=== PATIENT | male | born 1965 | race Hispanic/Latino ===

== ENCOUNTER 2020-01-23 13:26 | Inpatient (IN) | payer OTHER, SELFPAY ==
[2020-01-23] MEDS ORDERED: SODIUM CHLORIDE 0.9% 1000 ML 1,000 ML IV ONE ×2 (13:41→14:56)
[2020-01-23] MEDS ORDERED: dexAMETHasone 4 MG/ML VIAL IV ONE (13:42)
--- NOTE | 2020-01-23 13:54 | Emergency Department Report ---
ED Shortness of Breath HPI - General Chief Complaint: Dyspnea/Respdistress Stated Complaint: COVID/MAINOR Time Seen by Provider: 01/23/20 13:41 Source: EMS Mode of arrival: Ambulatory Limitations: Language Barrier - History of Present Illness Initial Comments: Patient is 54 years old male brought to the emergency room via EMS from home. Patient brought for evaluation of shortness of breath and difficulty in breathing for the last few days getting worse today. EMS stated that patient tested positive for COVID-19 3 days ago and his primary care physician started him on Zithromax and prednisone. EMS stated that patient initial oxygen saturat ion was 62% on room air improved with a nonrebreather to 76%. Upon arrival to the ER patient is alert oriented slightly tachypneic with an oxygen saturation of 76% on a nonrebreather. Patient immediately started on high flow oxygen with improvement of his oxygen saturation to 96%. MD Complaint: shortness of breath ED Review of Systems ROS: Stated complaint: COVID/MAINOR Other details as noted in HPI Comment: All other systems reviewed and negative Constitutional: denies: chills, fever Respiratory: cough, orthopnea, shortness of breath, SOB with exertion, SOB at rest. denies: wheezing Cardiovascular: palpitations. denies: chest pain Gastrointestinal: denies: abdominal pain, nausea, vomiting Musculoskeletal: denies: back pain ED Past Medical Hx - Past Medical History Previous Medical History?: Yes Additional medical history: covid19 - Surgical History Past Surgical History?: Yes - Social History Smoking Status: Never Smoker Substance Use Type: None ED Physical Exam - General Limitations: Language Barrier General appearance: alert, in distress (Moderate respiratory distress, tachypneic) - Head Head exam: Present: atraumatic, normocephalic, normal inspection - Eye Eye exam: Present: normal appearance, PERRL - ENT ENT exam: Present: normal exam, normal orophraynx, mucous membranes moist - Neck Neck exam: Present: normal inspection, full ROM. Absent: tenderness, meningismus - Respiratory Respiratory exam: Present: respiratory distress. Absent: wheezes, rales, rhonchi, accessory muscle use, decreased breath sounds, prolonged expiratory - Cardiovascular Cardiovascular Exam: Present: tachycardia - GI/Abdominal GI/Abdominal exam: Present: soft, normal bowel sounds. Absent: distended, tenderness, guarding, rebound, rigid, organomegaly, mass, bruit, pulsatile mass, hernia - Extremities Exam Extremities exam: Present: normal inspection, full ROM, normal capillary refill. Absent: pedal edema, calf tenderness - Back Exam Back exam: Present: normal inspection, full ROM. Absent: CVA tenderness (R), CVA tenderness (L) - Neurological Exam Neurological exam: Present: alert, oriented X3, CN II-XII intact - Skin Skin exam: Present: warm, intact, normal color ED Course Vital Signs 01/23/20 01/23/20 13:38 14:40 Temperature 98.1 F Pulse Rate 106 H Respiratory 18 18 Rate Blood Pressure 115/66 Blood Pressure 115/66 [Right] O2 Sat by Pulse 70 L 100 Oximetry ED Medical Decision Making - Lab Data Result diagrams: 01/23/20 13:52 01/23/20 13:52 - EKG Data -: EKG Interpreted by Ny EKG shows normal: sinus rhythm Rate: normal - Radiology Data Radiology results: report reviewed - Medical Decision Making Patient is 54 years old male brought to the emergency room via EMS from home. Patient brought for evaluation of shortness of breath and difficulty in breathing for the last few days getting worse today. EMS stated that patient tested positive for COVID-19 3 days ago and his primary care physician started him on Zithromax and prednisone. EMS stated that patient initial oxygen saturation was 62% on room air improved with a nonrebreather to 76%. Upon arrival to the ER patient is alert oriented slightly tachypneic with an oxygen saturation of 76% on a nonrebreather. Patient immediately started on high flow oxygen with improvement of his oxygen saturation to 96%. Chest x-ray showed bilateral pneumonia. Patient started on Rocephin 1 g IV, Zithromax 500 mg IV and Decadron 8 mg IV. I discussed the patient with Dr. Wade, he agreed to admit the patient to medical service for further management. Critical care attestation.: If time is entered above; I have spent that time in minutes in the direct care of this critically ill patient, excluding procedure time. ED Disposition Clinical Impression: Pneumonia due to COVID-19 virus Disposition: OP ADMIT IP TO THIS HOSP Is pt being admited?: Yes Condition: Stable Instructions: Bacterial Pneumonia (ED)
[2020-01-23 14:33] LABS: Hematocrit 45.3 % (35.5-45.6); Hemoglobin 15.8 gm/dl (11.8-15.2); Mean Corpuscular HGB Conc 35 % (32-34); Mean Corpuscular Volume 91 fl (84-94); Platelet Count 371 K/mm3 (140-440); Red Blood Count 4.96 M/mm3 (3.65-5.03); Red Cell Distribution Width 13.2 % (13.2-15.2)
[2020-01-23 14:41] LABS: INR 1.15 (0.87-1.13)
[2020-01-23 14:42] LABS: Partial Thromboplastin Time 23.7 Sec. (24.2-36.6)
[2020-01-23] MEDS ORDERED: cefTRIAXone/NS 1 GM/50 ML 1 GM/50 ML BAG IV ONE (14:55)
--- NOTE | 2020-01-23 15:09 | XRay Report ---
CHEST 1 VIEW INDICATION / CLINICAL INFORMATION: Dyspnea. FINDINGS: SUPPORT DEVICES: None. HEART / MEDIASTINUM: No significant abnormality. LUNGS / PLEURA: Severe bilateral airspace pneumonia, lower lobe predominant. Signer Name: Aryan Pina MD Signed: 01/23/2020 3:04 PM Workstation Name: [id number]
[2020-01-23 15:13] LABS: Blood Urea Nitrogen 23 mg/dL (9-20); Calcium 9.1 mg/dL (8.4-10.2); Hemolysis Index 5
[2020-01-23 15:15] LABS: BUN/Creatinine Ratio 38
[2020-01-23 15:17] LABS: Albumin 3.2 g/dL (3.9-5); Bilirubin,Direct 0.2 mg/dL (0-0.2)
[2020-01-23] MEDS ORDERED: AZITHROMYCIN 500 MG in SODIUM CHLORIDE 0.9% 250ML 250 ML IV ONE (15:30)
--- NOTE | 2020-01-23 16:18 | History and Physical Report ---
History of Present Illness Chief complaint: Its hard to breathe History of present illness: 54 YO Male with NO PMH found to have Positive coronavirus test 3 days ago presents to ED for evaluation. Patient states he has experienced shortness of breath over the past 1 week with progressively worsening symptoms over the last 3 days. Patient was seen and evaluated by his primary care physician and found to have a positive coronavirus test 3 days ago and was treated with outpatient antibiotic and steroid therapy. Patient states that he has experienced worsening symptoms. Patient knowledges shortness of breath, fever, malaise, decreased exercise tolerance, dry cough, loss of sense of smell and taste. EMS notified and upon arrival the patient was found to be in distress. Patient was found to have a pulse oximetry of 62% on room air. Patient placed on nonrebreather mask with improvement of pulse oximetry up to 76%. The patient was subsequently transported to [facility] for further care and evaluation of the afo rementioned symptoms. Patient seen and evaluated in the emergency department. All lab and imaging studies reviewed. Patient found to have a follow-up pulse oximetry of 60% on nonrebreather mask and was subsequently placed on high flow submental oxygen with mild improvement in symptoms. Patient underwent chest x- ray which revealed bilateral pneumonia. Patient admitted to medical floor due to increased risk of pulmonary decompensation. Patient initiated on pneumonia protocol. Patient also initiated on coronavirus protocol. Patient denies chills, chest pain, palpitations, skin rash, recent ill contacts. No prior admission for review. No medication listed at time of admission for recon ciliation. Past History Past Medical History: No medical history Past Surgical History: No surgical history, Other (Reviewed) Social history: single. denies: smoking, alcohol abuse, prescription drug abuse Family history: no significant family history Medications and Allergies Allergies Allergy/AdvReac Type Severity Reaction Status Date / Time No Known Allergies Allergy Unverified 01/23/20 16:20 Active Meds: Active Medications Azithromycin 500 mg/ Sodium (Chloride) 250 mls @ 250 mls/hr IV ONCE ONE; Protocol Stop: 01/23/20 16:29 Review of Systems Constitutional: fever, fatigue, weakness, malaise, no chills, no night sweats Ears, nose, mouth and throat: other (Loss of sense of smell and taste), no ear pain, no ear discharge, no tinnitis, no decreased hearing, no nose pain Cardiovascular: no chest pain, no orthopnea, no palpitations, no rapid/irregular heart beat Respiratory: cough, no cough with sputum, no excessive sputum, no hemoptysis Gastrointestinal: no abdominal pain, no nausea, no vomiting, no diarrhea, no constipation Genitourinary Male: no flank pain, no discharge, no urinary frequency, no urinary hesitancy Rectal: no pain, no incontinence, no bleeding Musculoskeletal: no neck stiffness, no neck pain, no shooting arm pain, no arm numbness/tingling Integumentary: no rash, no pruritis, no redness, no sores, no wounds Neurological: no transient paralysis, no paralysis, no weakness, no parathesias, no numbness Psychiatric: no anxiety, no memory loss, no change in sleep habits, no sleep disturbances, no insomnia, no hypersomnia, no change in appetite Endocrine: no cold intolerance, no heat intolerance, no excessive thirst, no polydipsia, no polyuria, no excessive sweating Hematologic/Lymphatic: no easy bruising, no easy bleeding, no lymphadenopathy Allergic/Immunologic: no allergic rhinitis, no wheezing, no persistent infections Exam - Constitutional Vitals: Temp Pulse Resp BP Pulse Ox 98.7 F 107 H 18 115/66 100 01/23/20 13:38 01/23/20 13:38 01/23/20 14:40 01/23/20 13:38 01/23/20 14:40 General appearance: Present: mild distress - EENT Eyes: Present: PERRL ENT: hearing intact, clear oral mucosa - Neck Neck: Present: supple, normal ROM - Respiratory Respiratory effort: labored Respiratory: bilateral: diminished, rhonchi - Cardiovascular Heart Sounds: Present: S1 & S2. Absent: rub, click - Extremities Extremities: pulses symmetrical, No edema Peripheral Pulses: within normal limits - Abdominal General gastrointestinal: Present: soft, non-tender, non-distended, normal bowel sounds Male genitourinary: Present: normal - Integumentary Integumentary: Present: clear, warm, dry - Musculoskeletal Musculoskeletal: gait normal, strength equal bilaterally - Psychiatric Psychiatric: appropriate mood/affect, intact judgment & insight - Neurologic Neurologic: CNII-XII intact, moves all extremities Results - Labs CBC & Chem 7: 01/23/20 13:52 01/23/20 13:52 Labs: Abnormal lab results 01/23/20 01/23/20 01/23/20 Range/Units 13:52 13:52 13:52 WBC 14.5 H (4.5-11.0) K/mm3 Hgb 15.8 H (11.8-15.2) gm/dl MCHC 35 H (32-34) % INR 1.15 H (0.87-1.13) APTT 23.7 L (24.2-36.6) Sec. D-Dimer > 86467 H (0-234) ng/mlDDU Sodium 131 L (137-145) mmol/L Chloride 92.3 L (98-107) mmol/L Carbon Dioxide 21 L (22-30) mmol/L BUN 23 H (9-20) mg/dL Creatinine 0.6 L (0.8-1.3) mg/dL Glucose 394 H (75-100) mg/dL Lactic Acid (0.7-2.0) mmol/L Alkaline Phosphatase (35-129) units/L Albumin (3.9-5) g/dL 01/23/20 01/23/20 Range/Units 13:52 13:52 WBC (4.5-11.0) K/mm3 Hgb (11.8-15.2) gm/dl MCHC (32-34) % INR (0.87-1.13) APTT (24.2-36.6) Sec. D-Dimer (0-234) ng/mlDDU Sodium (137-145) mmol/L Chloride (98-107) mmol/L Carbon Dioxide (22-30) mmol/L BUN (9-20) mg/dL Creatinine (0.8-1.3) mg/dL Glucose 393 H (75-100) mg/dL Lactic Acid 3.50 H* (0.7-2.0) mmol/L Alkaline Phosphatase 216 H (35-129) units/L Albumin 3.2 L (3.9-5) g/dL Assessment and Plan - Patient Problems (1) Acute hypoxemic respiratory failure Current Visit: Yes Status: Acute Plan to address problem: Supplemental high flow oxygen, pulse oximetry, nebulizer therapy via MDI spacer, chest x-ray, prone positioning while in bed, incentive spirometry, pulmonary toilet. (2) Suspected 2019 novel coronavirus infection Current Visit: Yes Status: Acute Plan to address problem: Coronavirus protocol: Coronavirus PCR pending, contact precautions, isolation precautions, IV antibiotic therapy, IV steroid therapy, prone positioning while in bed, incentive spirometry, pulmonary toilet, prophylactic anticoagulation. (3) Bilateral pneumonia Current Visit: Yes Status: Acute Plan to address problem: Pneumonia protocol: Chest x-ray, CBC, CMP, IV antibiotic therapy, pulse oximetry, nebulizer therapy, blood culture, supportive care. (4) DVT prophylaxis Current Visit: Yes Status: Acute Plan to address problem: SCD to bilateral lower extremities while in bed, prophylactic anticoagulation
[2020-01-23 16:21] LABS: C-Reactive Protein 9.5 mg/dL (0.00-1.30)
[2020-01-23] MEDS ORDERED: methylPREDNISolone Sod Succinate 125 MG/2 ML INJ ONE (17:53)
[2020-01-23] MEDS: methylPREDNISolone Sod Succinate 40 MG/1 ML INJ IV SCH ×2 (18:12→22:41)
[2020-01-23 20:19] LABS: Band Neutrophils # (Manual) 0.3 K/mm3; Basophils % (Manual) 0 % (0.0-1.8); Eosinophils % (Manual) 0 % (0.0-4.3); Large Platelets Rare; Total Cells Counted 100
[2020-01-23 20:20] LABS: Platelet Estimate Consistent w Auto
[2020-01-23 22:00] LABS: ABG Base Excess -4.5 mmol/L (-2.0-3.0); ABG HCO3 18.1 mmol/L (20.0-26.0); ABG Methemoglobin 0.5 % (0.0-1.5); ABG Oxygen Saturation 94.9 % (95.0-99.0); ABG PCO2 27.5 mm Hg; ABG PH 7.437 pH Units (7.350-7.450); ABG PO2 63.2 mm Hg (80.0-90.0)
[2020-01-23] MEDS: HEPARIN 5,000 UNIT/1 ML VIAL SUB-Q SCH (22:41)
[2020-01-24] MEDS: methylPREDNISolone Sod Succinate 40 MG/1 ML INJ IV SCH ×3 (06:44→21:18)
[2020-01-24] MEDS: HEPARIN 5,000 UNIT/1 ML VIAL SUB-Q SCH ×2 (13:42→21:19)
[2020-01-24] MEDS: cefTRIAXone/NS 2 GM/100 ML 2 GM/100 ML BAG IV SCH (14:52)
--- NOTE | 2020-01-24 16:17 | Progress Note ---
Assessment and Plan (1) Acute hypoxemic respiratory failure Current Visit: Yes Status: Acute Plan to address problem: Patient on high flow oxygen (2) Suspected 2019 novel coronavirus infection Current Visit: Yes Status: Acute Plan to address problem: Coronavirus PCR positive IV Decadron 6 mg every 24 (3) Bilateral pneumonia Current Visit: Yes Status: Acute Plan to address problem: Continue IV antibiotics (4) DVT prophylaxis Current Visit: Yes Status: Acute Plan to address problem: SCD to bilateral lower extremities while in bed, prophylactic anticoagulation Subjective Date of service: 01/24/20 Principal diagnosis: Acute respiratory failure with hypoxia, COVID-19 positive test (U07.1, [place] Interval history: 54 YO Male with NO PMH found to have Positive coronavirus test 3 days ago presents to ED for evaluation. Patient states he has experienced shortness of breath over the past 1 week with progressively worsening symptoms over the last 3 days. Patient was seen and evaluated by his primary care physician and found to have a positive coronavirus test 3 days ago and was treated with outpatient antibiotic and steroid therapy. Patient states that he has experienced worsening symptoms. Patient knowledges shortness of breath, fever, malaise, decreased exercise tolerance, dry cough, loss of sense of smell and taste. EMS notified and upon arrival the patient was found to be in distress. Patient was found to have a pulse oximetry of 62% on room air. Patient placed on no nrebreather mask with improvement of pulse oximetry up to 76%. The patient was subsequently transported to [facility] for further care and evaluation of the aforementioned symptoms. Patient seen and evaluated in the emergency department. All lab and imaging studies reviewed. Patient found to have a fol low-up pulse oximetry of 60% on nonrebreather mask and was subsequently placed on high flow submental oxygen with mild improvement in symptoms. Patient underwent chest x-ray which revealed bilateral pneumonia. Patient admitted to medical floor due to increased risk of pulmonary decompensation. Patient initiated on pneumonia protocol. Patient also initiated on coronavirus protocol. Patient denies chills, chest pain, palpitations, skin rash, recent ill contacts. No prior admission for review. No medication listed at time of admission for reconciliation. Day #2 01/24/2020 Patient tested positive for coronavirus PCR Patient on high flow oxygen Continue IV Decadron ID consult to be requested Objective - Constitutional Vitals: Vital Signs - 12hr 01/24/20 01/24/20 01/24/20 05:00 06:00 07:00 Temperature Pulse Rate 83 85 84 Respiratory 37 H 40 H 37 H Rate Blood Pressure 116/78 119/81 116/79 O2 Sat by Pulse 89 89 91 Oximetry 01/24/20 01/24/20 01/24/20 07:40 08:00 09:00 Temperature Pulse Rate 81 76 Respiratory 35 H 38 H Rate Blood Pressure 126/82 120/85 O2 Sat by Pulse 89 98 92 Oximetry 01/24/20 01/24/20 01/24/20 10:00 11:00 12:00 Temperature Pulse Rate 74 72 77 Respiratory 36 H 37 H 37 H Rate Blood Pressure 123/76 113/80 115/75 O2 Sat by Pulse 89 91 93 Oximetry 01/24/20 01/24/20 01/24/20 13:54 13:55 15:43 Temperature 98.0 F Pulse Rate 69 Respiratory 28 H 17 Rate Blood Pressure 122/79 O2 Sat by Pulse 89 88 91 Oximetry General appearance: Present: mild distress, well-nourished - EENT Eyes: PERRL, EOM intact ENT: hearing intact, clear oral mucosa Ears: bilateral: normal - Neck Neck: supple, normal ROM - Respiratory Respiratory effort: normal Respiratory: bilateral: CTA, wheezing (Scattered rhonchi) - Breasts Breasts: normal - Cardiovascular Heart rate: 78 Rhythm: regular Heart Sounds: Present: S1 & S2. Absent: gallop, rub Extremities: no ischemia, pulses intact, No edema, normal color, Full ROM - Gastrointestinal General gastrointestinal: Present: soft, non-tender, non-distended, normal bowel sounds - Genitourinary Male genitourinary: normal - Integumentary Integumentary: clear, warm, dry - Musculoskeletal Musculoskeletal: 1, strength equal bilaterally - Neurologic Neurologic: moves all extremities - Psychiatric Psychiatric: memory intact, appropriate mood/affect, intact judgment & insight - Allied health notes Allied health notes reviewed: nursing, case management - Labs CBC & Chem 7: 01/23/20 13:52 01/30/20 10:51 Labs: Abnormal lab results 01/23/20 01/23/20 01/23/20 Range/Units 13:52 13:52 13:52 Seg Neuts % (Manual) 89.0 H (40.0-70.0) % Lymphocytes % (Manual) 4.0 L (13.4-35.0) % Nucleated RBC % 1.0 H (0.0-0.9) % Seg Neutrophils # Man 12.9 H (1.8-7.7) K/mm3 Lymphocytes # (Manual) 0.6 L (1.2-5.4) K/mm3 ABG pO2 (80.0-90.0) mm Hg ABG HCO3 (20.0-26.0) mmol/L ABG O2 Saturation (95.0-99.0) % ABG Base Excess (-2.0-3.0) mmol/L Oxyhemoglobin (95.0-99.0) % POC Glucose (70-105) mg/dL Ferritin 2821.0 H (30.0-300.0) ng/mL Lactate Dehydrogenase 443 H (91-180) units/L C-Reactive Protein 9.50 H (0.00-1.30) mg/dL 01/23/20 01/24/20 Range/Units 21:55 15:41 Seg Neuts % (Manual) (40.0-70.0) % Lymphocytes % (Manual) (13.4-35.0) % Nucleated RBC % (0.0-0.9) % Seg Neutrophils # Man (1.8-7.7) K/mm3 Lymphocytes # (Manual) (1.2-5.4) K/mm3 ABG pO2 63.2 L (80.0-90.0) mm Hg ABG HCO3 18.1 L (20.0-26.0) mmol/L ABG O2 Saturation 94.9 L (95.0-99.0) % ABG Base Excess -4.5 L (-2.0-3.0) mmol/L Oxyhemoglobin 93.4 L (95.0-99.0) % POC Glucose 322 H (70-105) mg/dL Ferritin (30.0-300.0) ng/mL Lactate Dehydrogenase (91-180) units/L C-Reactive Protein (0.00-1.30) mg/dL
[2020-01-24] MEDS: AZITHROMYCIN 500 MG in SODIUM CHLORIDE 0.9% 250ML 250 ML IV SCH (16:57)
[2020-01-24] MEDS: traMADol 50 MG TAB PO PRN (21:18)
[2020-01-24] MEDS: INSULIN LISPRO 100 UNIT/ML VIAL 3 mL SUB-Q SCH (23:21)
[2020-01-25] MEDS: methylPREDNISolone Sod Succinate 40 MG/1 ML INJ IV SCH ×3 (05:11→21:35)
[2020-01-25] MEDS: INSULIN LISPRO 100 UNIT/ML VIAL 3 mL SUB-Q SCH ×4 (08:26→21:35)
[2020-01-25] MEDS: HEPARIN 5,000 UNIT/1 ML VIAL SUB-Q SCH ×2 (11:31→21:35)
--- NOTE | 2020-01-25 15:12 | Progress Note ---
Assessment and Plan (1) Acute hypoxemic respiratory failure Current Visit: Yes Status: Acute Plan to address problem: High flow oxygen (2) Suspected 2019 novel coronavirus infection Current Visit: Yes Status: Acute Plan to address problem: Coronavirus PCR positive (3) Bilateral pneumonia Current Visit: Yes Status: Acute Plan to address problem: Pneumonia protocol: Chest x-ray, CBC, CMP, IV antibiotic therapy, pulse oximetry, nebulizer therapy, blood culture, supportive care. (4) DVT prophylaxis Current Visit: Yes Status: Acute Plan to address problem: SCD to bilateral lower extremities while in bed, prophylactic anticoagulation Subjective Date of service: 01/25/20 Principal diagnosis: Acute respiratory failure with hypoxia, Covid pneumonia Interval history: 54 YO Male with NO PMH found to have Positive coronavirus test 3 days ago presents to ED for evaluation. Patient states he has experienced shortness of breath over the past 1 week with progressively worsening symptoms over the last 3 days. Patient was seen and evaluated by his primary care physician and found to have a positive coronavirus test 3 days ago and was treated with outpatient antibiotic and steroid therapy. Patient states that he has experienced worsening symptoms. Patient knowledges shortness of breath, fever, malaise, decreased exercise tolerance, dry cough, loss of sense of smell and taste. EMS notified and upon arrival the patient was found to be in distress. Patient was found to have a pulse oximetry of 62% on room air. Patient placed on nonrebreather mask with improvement of pulse oximetry up to 76%. The patient was subsequently transported to [facility] for further care and evaluation of the aforementioned symptoms. Patient seen and evaluated in the emergency department. All lab and imaging studies reviewed. Patient found to have a follow-up pulse oximetry of 60% on nonrebreather mask and was subsequently placed on high flow submental oxygen with mild improvement in symptoms. Patient underwent chest x-ray which revealed bilateral pneumonia. Patient admitted to medical floor due to increased risk of pulmonary decompensation. Patient initiated on pneumonia protocol. Patient also initiated on coronavirus protocol. Patient denies chills, chest pain, palpitations, skin rash, recent ill contacts. No prior admission for review. No medication listed at time of admission for reconciliation. Day #2 01/24/2020 Patient tested positive for coronavirus PCR Patient on high flow oxygen Continue IV Decadron ID consult to be requested Day #3 01/25/2020 Patient on high flow oxygen and IV Decadron Continue antibiotics Objective - Constitutional Vitals: Vital Signs - 12hr 01/25/20 01/25/20 01/25/20 05:24 09:00 12:31 Temperature 97.9 F Pulse Rate 73 Respiratory 18 Rate Blood Pressure 121/78 O2 Sat by Pulse 92 96 90 Oximetry General appearance: Present: mild distress, well-nourished - EENT Eyes: PERRL, EOM intact ENT: hearing intact, clear oral mucosa Ears: bilateral: normal - Neck Neck: supple, normal ROM - Respiratory Respiratory effort: normal Respiratory: bilateral: CTA, wheezing (Scattered rhonchi) - Breasts Breasts: normal - Cardiovascular Heart rate: 78 Rhythm: regular Heart Sounds: Present: S1 & S2. Absent: gallop, rub Extremities: pulses intact, No edema, normal color, Full ROM - Gastrointestinal General gastrointestinal: Present: soft, non-tender, non-distended, normal bowel sounds - Genitourinary Male genitourinary: normal - Integumentary Integumentary: clear, warm, dry - Musculoskeletal Musculoskeletal: 1, strength equal bilaterally - Neurologic Neurologic: moves all extremities - Psychiatric Psychiatric: memory intact, appropriate mood/affect, intact judgment & insight - Labs CBC & Chem 7: 01/23/20 13:52 01/30/20 10:51 Labs: Abnormal lab results 01/24/20 01/24/20 01/25/20 Range/Units 15:41 22:48 08:15 POC Glucose 322 H 374 H 348 H (70-105) mg/dL 01/25/20 Range/Units 11:45 POC Glucose 399 H (70-105) mg/dL
[2020-01-25] MEDS: cefTRIAXone/NS 2 GM/100 ML 2 GM/100 ML BAG IV SCH (15:25)
[2020-01-25] MEDS ORDERED: ENOXAPARIN 40 MG/0.4 ML INJ SUB-Q SCH (16:00)
[2020-01-25] MEDS: AZITHROMYCIN 500 MG in SODIUM CHLORIDE 0.9% 250ML 250 ML IV SCH (17:05)
[2020-01-26] MEDS: methylPREDNISolone Sod Succinate 40 MG/1 ML INJ IV SCH ×3 (05:22→21:36)
[2020-01-26] MEDS: INSULIN LISPRO 100 UNIT/ML VIAL 3 mL SUB-Q SCH ×4 (09:35→23:52)
[2020-01-26] MEDS: HEPARIN 5,000 UNIT/1 ML VIAL SUB-Q SCH ×2 (10:44→21:35)
[2020-01-26] MEDS: cefTRIAXone/NS 2 GM/100 ML 2 GM/100 ML BAG IV SCH (15:53)
--- NOTE | 2020-01-26 16:19 | Progress Note ---
Assessment and Plan (1) Acute hypoxemic respiratory failure Current Visit: Yes Status: Acute Plan to address problem: On high flow oxygen (2) Suspected 2019 novel coronavirus infection Current Visit: Yes Status: Acute Plan to address problem: Coronavirus positive IV Decadron (3) Bilateral pneumonia Current Visit: Yes Status: Acute Plan to address problem: Pneumonia protocol: Chest x-ray, CBC, CMP, IV antibiotic therapy, pulse oximetry, nebulizer therapy, blood culture, supportive care. (4) DVT prophylaxis Current Visit: Yes Status: Acute Plan to address problem: SCD to bilateral lower extremities while in bed, prophylactic anticoagulation Subjective Date of service: 01/26/20 Principal diagnosis: Acute respiratory failure with hypoxia, COVID-19 positive test (U07.1, [place] Interval history: 54 YO Male with NO PMH found to have Positive coronavirus test 3 days ago presents to ED for evaluation. Patient states he has experienced shortness of breath over the past 1 week with progressively worsening symptoms over the last 3 days. Patient was seen and evaluated by his primary care physician and found to have a positive coronavirus test 3 days ago and was treated with outpatient antibiotic and steroid therapy. Patient states that he has experienced worsening symptoms. Patient knowledges shortness of breath, fever, malaise, decreased exercise tolerance, dry cough, loss of sense of smell and taste. EMS notified and upon arrival the patient was found to be in distress. Patient was found to have a pulse oximetry of 62% on room air. Patient placed on nonrebreather mask with improvement of pulse oximetry up to 76%. The patient was subsequently transported to [facility] for further care and evaluation of the aforementioned symptoms. Patient seen and evaluated in the emergency department. All lab and imaging studies reviewed. Patient found to have a follow-up pulse oximetry of 60% on nonrebreather mask and was subsequently placed on high flow submental oxygen with mild improvement in symptoms. Patient underwent chest x-ray which revealed bilateral pneumonia. Patient admitted to medical floor due to increased risk of pulmonary decompensation. Patient initiated on pneumonia protocol. Patient also initiated on coronavirus protocol. Patient denies chills, chest pain, palpitations, skin rash, recent ill contacts. No prior admission for review. No medication listed at time of admission for reconciliation. Day #2 01/24/2020 Patient tested positive for coronavirus PCR Patient on high flow oxygen Continue IV Decadron ID consult to be requested Day #3 01/25/2020 Patient on high flow oxygen and IV Decadron Continue antibiotics Day #4 01/26/2020 Patient on high flow oxygen and IV Decadron Objective - Constitutional Vitals: Vital Signs - 12hr 01/26/20 01/26/20 01/26/20 05:07 05:10 09:02 Temperature 98.0 F Pulse Rate 79 Respiratory 16 Rate Blood Pressure 127/79 O2 Sat by Pulse 88 90 95 Oximetry 01/26/20 01/26/20 01/26/20 10:00 11:52 14:24 Temperature 97.5 F L Pulse Rate 96 H Respiratory 24 Rate Blood Pressure 113/76 O2 Sat by Pulse 94 91 93 Oximetry General appearance: Present: mild distress, well-nourished - EENT Eyes: PERRL, EOM intact ENT: hearing intact, clear oral mucosa Ears: bilateral: normal - Neck Neck: supple, normal ROM - Respiratory Respiratory effort: normal Respiratory: bilateral: CTA, wheezing (Scattered rhonchi) - Breasts Breasts: normal - Cardiovascular Heart rate: 78 Rhythm: regular Heart Sounds: Present: S1 & S2. Absent: gallop, rub Extremities: pulses intact, No edema, normal color, Full ROM - Gastrointestinal General gastrointestinal: Present: soft, non-tender, non-distended, normal bowel sounds - Genitourinary Male genitourinary: normal - Integumentary Integumentary: clear, warm, dry - Musculoskeletal Musculoskeletal: 1, strength equal bilaterally - Neurologic Neurologic: moves all extremities - Psychiatric Psychiatric: memory intact, appropriate mood/affect, intact judgment & insight - Labs CBC & Chem 7: 01/23/20 13:52 01/30/20 10:51 Labs: Abnormal lab results 01/23/20 01/25/20 01/25/20 Range/Units 08:20 16:38 20:23 POC Glucose 376 H 349 H (70-105) mg/dL Coronavirus (PCR) Positive A (Negative) 01/26/20 01/26/20 01/26/20 Range/Units 08:11 10:01 11:50 POC Glucose 299 H 361 H (70-105) mg/dL Coronavirus (PCR) Positive A (Negative)
[2020-01-26] MEDS ORDERED: dexAMETHasone 4 MG/ML VIAL IV SCH (17:00)
[2020-01-26] MEDS: INSULIN NPH/REGULAR 70/30 INJ SUB-Q SCH (17:51)
[2020-01-26] MEDS ORDERED: REMDESIVIR 200 MG in SODIUM CHLORIDE 0.9% 250ML 250 ML IV ONE (18:00)
[2020-01-26] MEDS: SODIUM CHLORIDE 0.9% 50 ML IVPB IV SCH (18:00)
[2020-01-26] MEDS ORDERED: REMDESIVIR 100 MG VIAL IV ONE (18:00)
[2020-01-26] MEDS: AZITHROMYCIN 500 MG in SODIUM CHLORIDE 0.9% 250ML 250 ML IV SCH (18:40)
[2020-01-27] MEDS: methylPREDNISolone Sod Succinate 40 MG/1 ML INJ IV SCH (05:32)
[2020-01-27] MEDS: INSULIN NPH/REGULAR 70/30 INJ SUB-Q SCH ×2 (08:55→18:34)
[2020-01-27] MEDS: INSULIN LISPRO 100 UNIT/ML VIAL 3 mL SUB-Q SCH ×4 (08:55→21:54)
[2020-01-27] MEDS: HEPARIN 5,000 UNIT/1 ML VIAL SUB-Q SCH ×2 (11:15→21:52)
[2020-01-27] MEDS: DEXAMETHASONE 4 MG TAB PO SCH (11:15)
[2020-01-27 14:43] LABS: Alanine Aminotransferase 25 units/L (7-56); Albumin 2.7 g/dL (3.9-5); Blood Urea Nitrogen 27 mg/dL (9-20); Calcium 8.8 mg/dL (8.4-10.2); Hemolysis Index 6
[2020-01-27 14:48] LABS: BUN/Creatinine Ratio 54; Bilirubin,Direct < 0.2 mg/dL (0-0.2)
[2020-01-27] MEDS: cefTRIAXone/NS 2 GM/100 ML 2 GM/100 ML BAG IV SCH (16:09)
[2020-01-27] MEDS: AZITHROMYCIN 500 MG in SODIUM CHLORIDE 0.9% 250ML 250 ML IV SCH (16:47)
[2020-01-27] MEDS: REMDESIVIR 100 MG in SODIUM CHLORIDE 0.9% 250ML 250 ML IV SCH (21:51)
[2020-01-27] MEDS: SODIUM CHLORIDE 0.9% 50 ML IVPB IV SCH (21:52)
--- NOTE | 2020-01-27 23:02 | Progress Note ---
Assessment and Plan (1) Acute hypoxemic respiratory failure Current Visit: Yes Status: Acute Plan to address problem: Patient on high flow oxygen (2) Suspected 2019 novel coronavirus infection Current Visit: Yes Status: Acute Plan to address problem: Covid positive On IV Decadron (3) Bilateral pneumonia Current Visit: Yes Status: Acute Plan to address problem: Continue IV antibiotics Will DC tomorrow (4) DVT prophylaxis Current Visit: Yes Status: Acute Plan to address problem: SCD to bilateral lower extremities while in bed, prophylactic anticoagulation Subjective Date of service: 01/27/20 Principal diagnosis: Acute respiratory failure with hypoxia, COVID-19 positive test (U07.1, [place] Interval history: 54 YO Male with NO PMH found to have Positive coronavirus test 3 days ago pr esents to ED for evaluation. Patient states he has experienced shortness of breath over the past 1 week with progressively worsening symptoms over the last 3 days. Patient was seen and evaluated by his primary care physician and found to have a positive coronavirus test 3 days ago and was treated with outpatient antibiotic and steroid therapy. Patient states that he has experienced worsening symptoms. Patient knowledges shortness of breath, fever, malaise, decreased exercise tolerance, dry cough, loss of sense of smell and taste. EMS notified and upon arrival the patient was found to be in distress. Patient was found to have a pulse oximetry of 62% on room air. Patient placed on nonre breather mask with improvement of pulse oximetry up to 76%. The patient was subsequently transported to [facility] for further care and evaluation of the aforementioned symptoms. Patient seen and evaluated in the emergency department. All lab and imaging studies reviewed. Patient found to have a follow-up pulse oximetry of 60% on nonrebreather mask and was subsequently placed on high flow submental oxygen with mild improvement in symptoms. Patient underwent chest x-ray which revealed bilateral pneumonia. Patient admitted to medical floor due to increased risk of pulmonary decompensation. Patient initiated on pneumonia protocol. Patient also initiated on coronavirus protocol. Patient denies chills, chest pain, palpitations, skin rash, recent ill contacts. No prior admission for review. No medication listed at time of admission for reconciliation. Day #2 01/24/2020 Patient tested positive for coronavirus PCR Patient on high flow oxygen Continue IV Decadron ID consult to be requested Day #3 01/25/2020 Patient on high flow oxygen and IV Decadron Continue antibiotics Day #4 01/26/2020 Patient on high flow oxygen and IV Decadron Day #5 01/27/2020 Patient on high flow oxygen and IV Decadron Objective - Constitutional Vitals: Vital Signs - 12hr 01/27/20 01/27/20 01/27/20 12:21 14:10 17:34 Temperature 97.2 F L 98.9 F Pulse Rate 91 H 82 Respiratory 24 24 Rate Blood Pressure 102/74 111/73 O2 Sat by Pulse 90 94 90 Oximetry 01/27/20 21:30 Temperature Pulse Rate Respiratory Rate Blood Pressure O2 Sat by Pulse 92 Oximetry General appearance: Present: mild distress, well-nourished - EENT Eyes: PERRL, EOM intact ENT: hearing intact, clear oral mucosa Ears: bilateral: normal - Neck Neck: supple, normal ROM - Respiratory Respiratory effort: normal Respiratory: bilateral: CTA - Breasts Breasts: normal - Cardiovascular Heart rate: 78 Rhythm: regular Heart Sounds: Present: S1 & S2. Absent: gallop, rub Extremities: pulses intact, No edema, normal color, Full ROM - Gastrointestinal General gastrointestinal: Present: soft, non-tender, non-distended, normal bowel sounds - Genitourinary Male genitourinary: normal - Integumentary Integumentary: clear, warm, dry - Musculoskeletal Musculoskeletal: 1, strength equal bilaterally - Neurologic Neurologic: moves all extremities - Psychiatric Psychiatric: memory intact, appropriate mood/affect, intact judgment & insight - Allied health notes Allied health notes reviewed: nursing, case management - Labs CBC & Chem 7: 01/23/20 13:52 01/30/20 10:51 Labs: Abnormal lab results 01/26/20 01/27/20 01/27/20 Range/Units 23:11 07:47 12:18 D-Dimer (0-234) ng/mlDDU Sodium (137-145) mmol/L BUN (9-20) mg/dL Creatinine (0.8-1.3) mg/dL Glucose (75-100) mg/dL POC Glucose 271 H 227 H 289 H (70-105) mg/dL Alkaline Phosphatase (35-129) units/L Total Protein (6.3-8.2) g/dL Albumin (3.9-5) g/dL 01/27/20 01/27/20 01/27/20 Range/Units 13:25 13:25 17:31 D-Dimer > 30945 H (0-234) ng/mlDDU Sodium 135 L (137-145) mmol/L BUN 27 H (9-20) mg/dL Creatinine 0.5 L (0.8-1.3) mg/dL Glucose 282 H (75-100) mg/dL POC Glucose 255 H (70-105) mg/dL Alkaline Phosphatase 161 H (35-129) units/L Total Protein 5.8 L D (6.3-8.2) g/dL Albumin 2.7 L (3.9-5) g/dL 01/27/20 Range/Units 21:30 D-Dimer (0-234) ng/mlDDU Sodium (137-145) mmol/L BUN (9-20) mg/dL Creatinine (0.8-1.3) mg/dL Glucose (75-100) mg/dL POC Glucose 256 H (70-105) mg/dL Alkaline Phosphatase (35-129) units/L Total Protein (6.3-8.2) g/dL Albumin (3.9-5) g/dL
[2020-01-28] MEDS: INSULIN LISPRO 100 UNIT/ML VIAL 3 mL SUB-Q SCH ×4 (11:22→22:05)
[2020-01-28] MEDS: INSULIN NPH/REGULAR 70/30 INJ SUB-Q SCH ×2 (11:23→18:14)
[2020-01-28] MEDS: HEPARIN 5,000 UNIT/1 ML VIAL SUB-Q SCH ×2 (11:24→21:54)
[2020-01-28] MEDS: DEXAMETHASONE 4 MG TAB PO SCH (11:25)
[2020-01-28] MEDS: traMADol 50 MG TAB PO PRN (12:34)
--- NOTE | 2020-01-28 16:55 | Progress Note ---
Assessment and Plan (1) Acute hypoxemic respiratory failure Current Visit: Yes Status: Acute Plan to address problem: Patient on high flow oxygen (2) Suspected 2019 novel coronavirus infection Current Visit: Yes Status: Acute Plan to address problem: Covid positive On IV Decadron (3) Bilateral pneumonia Current Visit: Yes Status: Acute Plan to address problem: Continue IV antibiotics Will DC antibiotics today (4) DVT prophylaxis Current Visit: Yes Status: Acute Plan to address problem: SCD to bilateral lower extremities while in bed, prophylactic anticoagulation Subjective Date of service: 01/28/20 Principal diagnosis: Acute respiratory failure with hypoxia, Covid pneumonia Interval history: 54 YO Male with NO PMH found to have Positive coronavirus test 3 days ago presents to ED for evaluation. Patient states he has experienced shortness of breath over the past 1 week with progressively worsening symptoms over the last 3 days. Patient was seen and evaluated by his primary care physician and found to have a positive coronavirus test 3 days ago and was treated with outpatient antibiotic and steroid therapy. Patient states that he has experienced worsening symptoms. Patient knowledges shortness of breath, fever, malaise, decreased exercise tolerance, dry cough, loss of sense of smell and taste. EMS notified and upon arrival the patient was found to be in distress. Patient was found to have a pulse oximetry of 62% on room air. Patient placed on nonrebreather mask with improvement of pulse oximetry up to 76%. The patient was subsequently transported to [facility] for further care and evaluation of the aforementioned symptoms. Patient seen and evaluated in the emergency department. All lab and imaging studies reviewed. Patient found to have a follow-up pulse oximetry of 60% on nonrebreather mask and was subsequently placed on high flow submental oxygen with mild improvement in symptoms. Patient underwent chest x-ray which revealed bilateral pneumonia. Patient admitted to medical floor due to increased risk of pulmonary decompensation. Patient initia deya on pneumonia protocol. Patient also initiated on coronavirus protocol. Patient denies chills, chest pain, palpitations, skin rash, recent ill contacts. No prior admission for review. No medication listed at time of admission for reconciliation. Day #2 01/24/2020 Patient tested positive for coronavirus PCR Patient on high flow oxygen Continue IV Decadron ID consult to be requested Day #3 01/25/2020 Patient on high flow oxygen and IV Decadron Continue antibiotics Day #4 01/26/2020 Patient on high flow oxygen and IV Decadron Day #5 01/27/2020 Patient on high flow oxygen and IV Decadron Day #6 01/28/2020 On high flow oxygen and IV Decadron Objective - Constitutional Vitals: Vital Signs - 12hr 01/28/20 01/28/20 05:23 09:00 Temperature 98.1 F Pulse Rate 81 Respiratory 22 Rate Blood Pressure 115/79 O2 Sat by Pulse 89 91 Oximetry General appearance: Present: mild distress, well-nourished - EENT Eyes: PERRL, EOM intact ENT: hearing intact, clear oral mucosa Ears: bilateral: normal - Neck Neck: supple, normal ROM - Respiratory Respiratory effort: normal Respiratory: bilateral: CTA, wheezing (Scattered rhonchi) - Breasts Breasts: normal - Cardiovascular Heart rate: 88 Rhythm: regular Heart Sounds: Present: S1 & S2. Absent: gallop, rub Extremities: pulses intact, No edema, normal color, Full ROM - Gastrointestinal General gastrointestinal: Present: soft, non-tender, non-distended, normal bowel sounds - Genitourinary Male genitourinary: normal - Integumentary Integumentary: clear, warm, dry - Musculoskeletal Musculoskeletal: 1, strength equal bilaterally - Neurologic Neurologic: moves all extremities - Psychiatric Psychiatric: memory intact, appropriate mood/affect, intact judgment & insight - Allied health notes Allied health notes reviewed: nursing, case management - Labs CBC & Chem 7: 01/23/20 13:52 01/30/20 10:51 Labs: Abnormal lab results 01/27/20 01/27/20 01/28/20 Range/Units 17:31 21:30 08:00 POC Glucose 255 H 256 H 178 H (70-105) mg/dL 01/28/20 Range/Units 12:19 POC Glucose 247 H (70-105) mg/dL
[2020-01-28] MEDS: cefTRIAXone/NS 2 GM/100 ML 2 GM/100 ML BAG IV SCH (18:16)
[2020-01-28] MEDS: REMDESIVIR 100 MG in SODIUM CHLORIDE 0.9% 250ML 250 ML IV SCH (21:54)
[2020-01-28] MEDS: SODIUM CHLORIDE 0.9% 50 ML IVPB IV SCH (21:55)
[2020-01-29] MEDS: traMADol 50 MG TAB PO PRN ×2 (08:48→22:14)
[2020-01-29] MEDS ORDERED: HYDROmorphone 1 MG/1 ML INJ IV NR (09:15)
[2020-01-29] MEDS: INSULIN NPH/REGULAR 70/30 INJ SUB-Q SCH ×2 (09:24→19:40)
--- NOTE | 2020-01-29 11:48 | Consultation ---
History of Present Illness Consult date: 01/29/20 Consult reason: chest pain History of present illness: This is a 54-year old male who presented several days ago with shortness of breath, hypoxia with oxygen saturation in the 80s. Chest x-ray showed bilateral opacities and COVID 19 test was positive. Today, patient complained of chest pain. Chest pain is poorly described and is atypical. There is no prior cardiac history and he had no prior cardiac workup. An ECG done is sinus rhythm with non-specific T wave changes. There are no old ECGs for comparison. Cardiology consultation has been requested for further evaluation. Past History Past Medical History: No medical history Past Surgical History: No surgical history Social history: single. denies: smoking, alcohol abuse, prescription drug abuse Family history: no significant family history Medications and Allergies Allergies Allergy/AdvReac Type Severity Reaction Status Date / Time No Known Allergies Allergy Unverified 01/23/20 16:20 Active Meds: Active Medications Dexamethasone (Decadron) 6 mg PO DAILY [facility] Stop: 02/04/20 10:01 Last Admin: 01/28/20 11:25 Dose: 6 mg Documented by: Heparin Sodium (Porcine) (Heparin) 5,000 unit SUB-Q Q12HR [facility] Last Admin: 01/28/20 21:54 Dose: 5,000 unit Documented by: Hydromorphone HCl (Dilaudid) 0.5 mg IV ONCE@0915 NR Stop: 01/29/20 12:00 Last Admin: 01/29/20 09:16 Dose: 0.5 mg Documented by: Ceftriaxone Sodium (Rocephin/Ns 2 Gm/100 Ml) 2 gm in 100 mls @ 200 mls/hr IV Q24H [facility]; Protocol Stop: 01/29/20 15:29 Last Admin: 01/28/20 18:16 Dose: 200 mls/hr Documented by: REMDESIVIR 100 mg/ Sodium (Chloride) 250 mls @ 500 mls/hr IV Q24HR@2100 [facility] Stop: 01/30/20 21:29 Last Admin: 01/28/20 21:54 Dose: 500 mls/hr Documented by: Insulin Human Isoph/Insulin Regular (Humulin 70/30) 15 unit SUB-Q BIDDIAB [facility] Last Admin: 01/29/20 09:24 Dose: Not Given Documented by: Sodium Chloride (Nacl 0.9%) 50 ml IV 2130 [facility] Stop: 01/30/20 21:31 Last Admin: 01/28/20 21:55 Dose: 50 ml Documented by: Tramadol HCl (Ultram) 50 mg PO Q6H PRN PRN Reason: Pain, Moderate (4-6) Last Admin: 01/29/20 08:48 Dose: 50 mg Documented by: Review of Systems Cardiovascular: chest pain, no palpitations, no edema, no lightheadedness Physical Examination Vital Signs Temp Pulse Resp BP Pulse Ox 98.7 F 107 H 18 115/66 100 01/23/20 13:38 01/23/20 13:38 01/23/20 13:38 01/23/20 13:38 01/23/20 13:38 Narrative exam: Deferred due to isolation protocol General appearance: no acute distress Cardiac: Positive: Reg Rate and Rhythm Results 01/23/20 13:52 01/27/20 13:25 Assessment and Plan Atypical chest pain Coronavirus pneumonia
[2020-01-29] MEDS: DEXAMETHASONE 4 MG TAB PO SCH (11:59)
[2020-01-29] MEDS: HEPARIN 5,000 UNIT/1 ML VIAL SUB-Q SCH ×2 (12:00→22:14)
[2020-01-29] MEDS: cefTRIAXone/NS 2 GM/100 ML 2 GM/100 ML BAG IV SCH (15:40)
[2020-01-29] MEDS: HYDROmorphone 1 MG/1 ML INJ IV PRN (16:02)
[2020-01-29] MEDS: REMDESIVIR 100 MG in SODIUM CHLORIDE 0.9% 250ML 250 ML IV SCH (22:14)
[2020-01-29] MEDS: SODIUM CHLORIDE 0.9% 50 ML IVPB IV SCH (22:14)
--- NOTE | 2020-01-29 23:56 | Progress Note ---
Assessment and Plan (1) Acute hypoxemic respiratory failure Current Visit: Yes Status: Acute Plan to address problem: High flow oxygen (2) Suspected 2019 novel coronavirus infection Current Visit: Yes Status: Acute Plan to address problem: Coronavirus positive Continue IV Decadron (3) Bilateral pneumonia Current Visit: Yes Status: Acute Plan to address problem: Pneumonia protocol: Chest x-ray, CBC, CMP, IV antibiotic therapy, pulse oximetry, nebulizer therapy, blood culture, supportive care. (4) DVT prophylaxis Current Visit: Yes Status: Acute Plan to address problem: SCD to bilateral lower extremities while in bed, prophylactic anticoagulation Subjective Date of service: 01/29/20 Principal diagnosis: Acute respiratory failure with hypoxia, Covid pneumonia Interval history: 54 YO Male with NO PMH found to have Positive coronavirus test 3 days ago presents to ED for evaluation. Patient states he has experienced shortness of breath over the past 1 week with progressively worsening symptoms over the last 3 days. Patient was seen and evaluated by his primary care physician and found to have a positive coronavirus test 3 days ago and was treated with outpatient antibiotic and steroid therapy. Patient states that he has experienced worsening symptoms. Patient knowledges shortness of breath, fever, malaise, decreased exercise tolerance, dry cough, loss of sense of smell and taste. EMS notified and upon arrival the patient was found to be in distress. Patient was found to have a pulse oximetry of 62% on room air. Patient placed on nonrebreather mask with improvement of pulse oximetry up to 76%. The patient was subsequently transported to [facility] for further care and evaluation of the aforementioned symptoms. Patient seen and evaluated in the emergency depart ment. All lab and imaging studies reviewed. Patient found to have a follow-up pulse oximetry of 60% on nonrebreather mask and was subsequently placed on high flow submental oxygen with mild improvement in symptoms. Patient underwent chest x-ray which revealed bilateral pneumonia. Patient admitted to medical floor due to increased risk of pulmonary decompensation. Patient initiated on pneumonia protocol. Patient also initiated on coronavirus protocol. Patient denies chills, chest pain, palpitations, skin rash, recent ill contacts. No prior admission for review. No medication listed at time of admission for reconciliation. Day #2 01/24/2020 Patient tested positive for coronavirus PCR Patient on high flow oxygen Continue IV Decadron ID consult to be requested Day #3 01/25/2020 Patient on high flow oxygen and IV Decadron Continue antibiotics Day #4 01/26/2020 Patient on high flow oxygen and IV Decadron Day #5 01/27/2020 Patient on high flow oxygen and IV Decadron Day #6 01/28/2020 On high flow oxygen and IV Decadron Day #7 01/29/2020 On high oxygen and IV Decadron Objective - Constitutional Vitals: Vital Signs - 12hr 01/29/20 01/29/20 01/29/20 12:24 15:00 17:00 Temperature 97.6 F 98.6 F Pulse Rate 90 95 H Respiratory 17 17 Rate Blood Pressure 108/74 102/73 O2 Sat by Pulse 95 94 94 Oximetry 01/29/20 01/29/20 22:50 23:17 Temperature 97.9 F Pulse Rate 91 H Respiratory 20 Rate Blood Pressure 112/77 O2 Sat by Pulse 94 97 Oximetry General appearance: Present: mild distress, well-nourished - EENT Eyes: PERRL, EOM intact ENT: hearing intact, clear oral mucosa Ears: bilateral: normal - Neck Neck: supple, normal ROM - Respiratory Respiratory effort: normal Respiratory: bilateral: CTA - Breasts Breasts: normal - Cardiovascular Heart rate: 78 Rhythm: regular Heart Sounds: Present: S1 & S2. Absent: gallop, rub Extremities: pulses intact, No edema, normal color, Full ROM - Gastrointestinal General gastrointestinal: Present: soft, non-tender, non-distended, normal bowel sounds - Genitourinary Male genitourinary: normal - Integumentary Integumentary: clear, warm, dry - Musculoskeletal Musculoskeletal: 1, strength equal bilaterally - Neurologic Neurologic: moves all extremities - Psychiatric Psychiatric: memory intact, appropriate mood/affect, intact judgment & insight - Allied health notes Allied health notes reviewed: nursing, case management - Labs CBC & Chem 7: 01/23/20 13:52 01/30/20 10:51 Labs: Abnormal lab results 01/29/20 01/29/20 01/29/20 Range/Units 12:21 16:57 23:16 POC Glucose 110 H 146 H 238 H (70-105) mg/dL
[2020-01-30] MEDS: traMADol 50 MG TAB PO PRN ×2 (08:08→22:59)
[2020-01-30] MEDS: INSULIN NPH/REGULAR 70/30 INJ SUB-Q SCH ×2 (08:09→19:30)
[2020-01-30] MEDS: HEPARIN 5,000 UNIT/1 ML VIAL SUB-Q SCH ×2 (10:15→22:58)
[2020-01-30] MEDS: DEXAMETHASONE 4 MG TAB PO SCH (10:15)
[2020-01-30 11:39] LABS: Blood Urea Nitrogen 18 mg/dL (9-20); Calcium 8.7 mg/dL (8.4-10.2); Hemolysis Index 6
--- NOTE | 2020-01-30 11:41 | Progress Note ---
Assessment and Plan Atypical chest pain Twelve-lead EKG shows a normal sinus rhythm with nonspecific T wave abnormalities. A repeat ECG done today is unchanged. Coronavirus pneumonia Will recommend outpatient cardiac follow up and ischemic workup with a stress test. Subjective Date of service: 01/30/20 Interval history: Patient reports chest pain has resolved. Cardiac isoenzymes ordered yesterday was not done. A repeat ECG today is unchanged. Objective Vital Signs Temp Pulse Resp BP Pulse Ox 01/30/20 11:32 94 01/30/20 04:44 98.6 F 88 18 110/76 94 01/30/20 04:31 95 01/29/20 23:17 97.9 F 91 H 20 112/77 97 01/29/20 22:50 94 01/29/20 22:00 95 01/29/20 17:00 98.6 F 95 H 17 102/73 94 01/29/20 15:00 94 01/29/20 12:24 97.6 F 90 17 108/74 95 - Physical Examination Narrative exam: Deferred due to isolation protocol General: Appears Well - Labs and Meds Comprehensive Metabolic Panel 01/30/20 Range/Units 10:51 Sodium 129 L (137-145) mmol/L Potassium 4.5 (3.6-5.0) mmol/L Chloride 94.6 L (98-107) mmol/L Carbon Dioxide 28 (22-30) mmol/L BUN 18 (9-20) mg/dL Glucose 172 H (75-100) mg/dL Calcium 8.7 (8.4-10.2) mg/dL
[2020-01-30 11:44] LABS: C-Reactive Protein 19.7 mg/dL (0.00-1.30)
[2020-01-30 11:48] LABS: BUN/Creatinine Ratio 36
--- NOTE | 2020-01-30 22:42 | Progress Note ---
Assessment and Plan (1) Acute hypoxemic respiratory failure Current Visit: Yes Status: Acute Plan to address problem: Supplemental high flow oxygen, pulse oximetry, nebulizer therapy via MDI spacer, chest x-ray, prone positioning while in bed, incentive spirometry, pulmonary toilet. (2) Suspected 2019 novel coronavirus infection Current Visit: Yes Status: Acute Plan to address problem: Coronavirus protocol: Coronavirus PCR pending, contact precautions, isolation pr ecautions, IV antibiotic therapy, IV steroid therapy, prone positioning while in bed, incentive spirometry, pulmonary toilet, prophylactic anticoagulation. (3) Bilateral pneumonia Current Visit: Yes Status: Acute Plan to address problem: Pneumonia protocol: Chest x-ray, CBC, CMP, IV antibiotic therapy, pulse oximetry, nebulizer therapy, blood culture, supportive care. 4) IDDM insulin dosage adjusted (5) DVT prophylaxis Current Visit: Yes Status: Acute Plan to address problem: SCD to bilateral lower extremities while in bed, prophylactic anticoagulation Subjective Date of service: 01/30/20 Principal diagnosis: Acute respiratory failure with hypoxia, COVID-19 positive test (U07.1, [place] Interval history: 54 YO Male with NO PMH found to have Positive coronavirus test 3 days ago p resents to ED for evaluation. Patient states he has experienced shortness of breath over the past 1 week with progressively worsening symptoms over the last 3 days. Patient was seen and evaluated by his primary care physician and found to have a positive coronavirus test 3 days ago and was treated with outpatient antibiotic and steroid therapy. Patient states that he has experienced worsening symptoms. Patient knowledges shortness of breath, fever, malaise, decreased exercise tolerance, dry cough, loss of sense of smell and taste. EMS notified and upon arrival the patient was found to be in distress. Patient was found to have a pulse oximetry of 62% on room air. Patient placed on nonr ebreather mask with improvement of pulse oximetry up to 76%. The patient was subsequently transported to [facility] for further care and evaluation of the aforementioned symptoms. Patient seen and evaluated in the emergency department. All lab and imaging studies reviewed. Patient found to have a follow-up pulse oximetry of 60% on nonrebreather mask and was subsequently placed on high flow submental oxygen with mild improvement in symptoms. Patient underwent chest x-ray which revealed bilateral pneumonia. Patient admitted to medical floor due to increased risk of pulmonary decompensation. Patient initiated on pneumonia protocol. Patient also initiated on coronavirus protocol. Patient denies chills, chest pain, palpitations, skin rash, recent ill contacts. No prior admission for review. No medication listed at time of admission for reconciliation. Day #2 01/24/2020 Patient tested positive for coronavirus PCR Patient on high flow oxygen Continue IV Decadron ID consult to be requested Day #3 01/25/2020 Patient on high flow oxygen and IV Decadron Continue antibiotics Day #4 01/26/2020 Patient on high flow oxygen and IV Decadron Day #5 01/27/2020 Patient on high flow oxygen and IV Decadron Day #6 01/28/2020 On high flow oxygen and IV Decadron Day #7 01/29/2020 On high oxygen and IV Decadron Day #8 01/30/2020 On high flow oxygen and IV Decadron Objective - Constitutional Vitals: Vital Signs - 12hr 01/30/20 11:32 O2 Sat by Pulse 94 Oximetry General appearance: Present: no acute distress, well-nourished - EENT Eyes: PERRL, EOM intact ENT: hearing intact, clear oral mucosa Ears: bilateral: normal - Neck Neck: supple, normal ROM - Respiratory Respiratory effort: normal Respiratory: bilateral: CTA - Breasts Breasts: normal - Cardiovascular Heart rate: 78 Rhythm: regular Heart Sounds: Present: S1 & S2. Absent: gallop, rub Extremities: pulses intact, No edema, normal color, Full ROM - Gastrointestinal General gastrointestinal: Present: soft, non-tender, non-distended, normal bowel sounds - Genitourinary Male genitourinary: normal - Integumentary Integumentary: clear, warm, dry - Musculoskeletal Musculoskeletal: 1, strength equal bilaterally - Neurologic Neurologic: moves all extremities - Psychiatric Psychiatric: memory intact, appropriate mood/affect, intact judgment & insight - Labs CBC & Chem 7: 01/23/20 13:52 01/30/20 10:51 Labs: Abnormal lab results 01/29/20 01/30/20 01/30/20 Range/Units 23:16 08:36 10:50 D-Dimer (0-234) ng/mlDDU Sodium (137-145) mmol/L Chloride (98-107) mmol/L Creatinine (0.8-1.3) mg/dL Glucose (75-100) mg/dL POC Glucose 238 H 180 H (70-105) mg/dL Ferritin 1652.0 H (30.0-300.0) ng/mL Lactate Dehydrogenase (91-180) units/L C-Reactive Protein (0.00-1.30) mg/dL 01/30/20 01/30/20 01/30/20 Range/Units 10:51 10:51 10:51 D-Dimer 4460.42 H (0-234) ng/mlDDU Sodium 129 L (137-145) mmol/L Chloride 94.6 L (98-107) mmol/L Creatinine 0.5 L (0.8-1.3) mg/dL Glucose 172 H (75-100) mg/dL POC Glucose (70-105) mg/dL Ferritin (30.0-300.0) ng/mL Lactate Dehydrogenase 341 H (91-180) units/L C-Reactive Protein 19.70 H (0.00-1.30) mg/dL 01/30/20 Range/Units 13:08 D-Dimer (0-234) ng/mlDDU Sodium (137-145) mmol/L Chloride (98-107) mmol/L Creatinine (0.8-1.3) mg/dL Glucose (75-100) mg/dL POC Glucose 155 H (70-105) mg/dL Ferritin (30.0-300.0) ng/mL Lactate Dehydrogenase (91-180) units/L C-Reactive Protein (0.00-1.30) mg/dL
[2020-01-30] MEDS: REMDESIVIR 100 MG in SODIUM CHLORIDE 0.9% 250ML 250 ML IV SCH (22:57)
[2020-01-30] MEDS: SODIUM CHLORIDE 0.9% 50 ML IVPB IV SCH (22:58)
[2020-01-31] MEDS: INSULIN NPH/REGULAR 70/30 INJ SUB-Q SCH ×2 (08:21→16:55)
--- NOTE | 2020-01-31 09:08 | Progress Note ---
<JOHANNE DUFFY - Last Filed: 01/31/20 09:06> Assessment and Plan Atypical chest pain Twelve-lead EKG shows a normal sinus rhythm with nonspecific T wave abnormalities. A repeat ECG done today is unchanged. Coronavirus pneumonia Conservative cardiac management. As an outpatient, recommend cardiac follow up and ischemic workup with a stress test. Subjective Date of service: 01/31/20 Interval history: No cardiac event overnight. Objective Vital Signs Temp Pulse Resp BP Pulse Ox 01/31/20 05:47 98.4 F 68 20 100/64 90 01/31/20 00:15 98.0 F 80 16 104/70 94 01/30/20 23:32 97.9 F 84 20 116/82 92 01/30/20 20:05 94 01/30/20 11:32 94 - Physical Examination Narrative exam: Deferred due to isolation protocol General: No Apparent Distress - Labs and Meds Cardiac Enzymes 01/30/20 Range/Units 10:51 Lactate Dehydrogenase 341 H (91-180) units/L Comprehensive Metabolic Panel 01/30/20 Range/Units 10:51 Sodium 129 L (137-145) mmol/L Potassium 4.5 (3.6-5.0) mmol/L Chloride 94.6 L (98-107) mmol/L Carbon Dioxide 28 (22-30) mmol/L BUN 18 (9-20) mg/dL Creatinine 0.5 L (0.8-1.3) mg/dL Glucose 172 H (75-100) mg/dL Calcium 8.7 (8.4-10.2) mg/dL <GIAN JOYCE - Last Filed: 02/03/20 09:17> Subjective Interval history: I SAW THIS PT & AGREE WITH THE Dx & Tx PLAN Objective Vital Signs Temp Pulse Pulse Resp BP Pulse Ox 02/03/20 05:00 98.4 F 80 16 105/69 92 02/03/20 02:56 96 02/02/20 22:00 96 H 02/02/20 21:18 97.8 F 96 H 16 98/66 95 02/02/20 20:56 97 02/02/20 17:45 94 02/02/20 11:32 97.7 F 96 H 20 100/70 95 02/02/20 09:25 95
[2020-01-31] MEDS: DEXAMETHASONE 4 MG TAB PO SCH (10:53)
[2020-01-31] MEDS: HEPARIN 5,000 UNIT/1 ML VIAL SUB-Q SCH ×2 (10:54→22:16)
[2020-01-31] MEDS: traMADol 50 MG TAB PO PRN (14:20)
--- NOTE | 2020-02-01 08:05 | Progress Note ---
Assessment and Plan (1) Acute hypoxemic respiratory failure Current Visit: Yes Status: Acute Plan to address problem: High flow oxygen (2) Suspected 2019 novel coronavirus infection Current Visit: Yes Status: Acute Plan to address problem: Coronavirus PCR positive IV Decadron for now (3) Bilateral pneumonia Current Visit: Yes Status: Acute Plan to address problem: IV antibiotics stopped 4) IDDM insulin dosage adjusted (5) DVT prophylaxis Current Visit: Yes Status: Acute Plan to address problem: SCD to bilateral lower extremities while in bed, prophylactic anticoagulation Subjective Date of service: 01/31/20 Principal diagnosis: Acute respiratory failure with hypoxia and Covid pneumonia Interval history: 54 YO Male with NO PMH found to have Positive coronavirus test 3 days ago presents to ED for evaluation. Patient states he has experienced shortness of breath over the past 1 week with progressively worsening symptoms over the last 3 days. Patient was seen and evaluated by his primary care physician and found to have a positive coronavirus test 3 days ago and was treated with outpatient antibiotic and steroid therapy. Patient states that he has experienced worsening symptoms. Patient knowledges shortness of breath, fever, malaise, decreased exercise tolerance, dry cough, loss of sense of smell and taste. EMS notified and upon arrival the patient was found to be in distress. Patient was found to have a pulse oximetry of 62% on room air. Patient placed on nonrebreather mask with improvement of pulse oximetry up to 76%. The patient was subsequently transported to [facility] for further care and evaluation of the aforementioned symptoms. Patient seen and evaluated in the emergency department. All lab and imaging studies reviewed. Patient found to have a follow-up pulse oximetry of 60% on nonrebreather mask and was subsequently placed on high flow submental oxygen with mild improvement in symptoms. Patient underwent chest x-ray which revealed bilateral pneumonia. Patient admitted to medical floor due to increased risk of pulmonary decompensation. Patient initiated on pneumonia protocol. Patient also initiated on coronavirus protocol. Patient denies chills, chest pain, palpitations, skin rash, recent ill contacts. No prior admission for review. No medication listed at time of admission for reconciliation. Day #2 01/24/2020 Patient tested positive for coronavirus PCR Patient on high flow oxygen Continue IV Decadron ID consult to be requested Day #3 01/25/2020 Patient on high flow oxygen and IV Decadron Continue antibiotics Day #4 01/26/2020 Patient on high flow oxygen and IV Decadron Day #5 01/27/2020 Patient on high flow oxygen and IV Decadron Day #6 01/28/2020 On high flow oxygen and IV Decadron Day #7 01/29/2020 On high oxygen and IV Decadron Day #8 01/30/2020 On high flow oxygen and IV Decadron Day #9 01/31/2020 On high flow oxygen and IV Decadron Insulin dosage adjusted Objective - Constitutional Vitals: Vital Signs - 12hr 01/31/20 01/31/20 02/01/20 20:35 22:00 00:23 Temperature 98.1 F Pulse Rate 88 Respiratory 18 24 Rate Blood Pressure 103/67 O2 Sat by Pulse 93 89 Oximetry 02/01/20 02/01/20 05:14 05:52 Temperature 98.1 F Pulse Rate 85 Respiratory 24 Rate Blood Pressure 107/73 O2 Sat by Pulse 93 86 Oximetry General appearance: Present: no acute distress, well-nourished - EENT Eyes: PERRL, EOM intact ENT: hearing intact, clear oral mucosa Ears: bilateral: normal - Neck Neck: supple, normal ROM - Respiratory Respiratory effort: normal Respiratory: bilateral: CTA - Breasts Breasts: normal - Cardiovascular Heart rate: 78 Rhythm: regular Heart Sounds: Present: S1 & S2. Absent: gallop, rub Extremities: pulses intact, No edema, normal color, Full ROM - Gastrointestinal General gastrointestinal: Present: soft, non-tender, non-distended, normal bowel sounds - Genitourinary Male genitourinary: normal - Integumentary Integumentary: clear, warm, dry - Musculoskeletal Musculoskeletal: 1, strength equal bilaterally - Neurologic Neurologic: moves all extremities - Psychiatric Psychiatric: memory intact, appropriate mood/affect, intact judgment & insight - Labs CBC & Chem 7: 01/23/20 13:52 01/30/20 10:51 Labs: Abnormal lab results 01/31/20 01/31/20 01/31/20 Range/Units 11:45 15:50 21:33 POC Glucose 141 H 154 H 223 H (70-105) mg/dL
[2020-02-01] MEDS: DEXAMETHASONE 4 MG TAB PO SCH (10:53)
[2020-02-01] MEDS: INSULIN NPH/REGULAR 70/30 INJ SUB-Q SCH ×2 (10:54→17:14)
[2020-02-01] MEDS: HEPARIN 5,000 UNIT/1 ML VIAL SUB-Q SCH ×2 (10:54→22:04)
--- NOTE | 2020-02-01 19:02 | Progress Note ---
Assessment and Plan (1) Acute hypoxemic respiratory failure Current Visit: Yes Status: Acute Plan to address problem: High flow oxygen (2) Suspected 2019 novel coronavirus infection Current Visit: Yes Status: Acute Plan to address problem: Coronavirus PCR positive IV Decadron for now (3) Bilateral pneumonia Current Visit: Yes Status: Acute Plan to address problem: IV antibiotics stopped 4) IDDM insulin dosage adjusted (5) DVT prophylaxis Current Visit: Yes Status: Acute Plan to address problem: SCD to bilateral lower extremities while in bed, prophylactic anticoagulation Subjective Date of service: 02/01/20 Principal diagnosis: Acute respiratory failure with hypoxia, Covid pneumonia Interval history: 54 YO Male with NO PMH found to have Positive coronavirus test 3 days ago presents to ED for evaluation. Patient states he has experienced shortness of breath over the past 1 week with progressively worsening symptoms over the last 3 days. Patient was seen and evaluated by his primary care physician and found to have a positive coronavirus test 3 days ago and was treated with outpatient antibiotic and steroid therapy. Patient states that he has experienced worsening symptoms. Patient knowledges shortness of breath, fever, malaise, dec reased exercise tolerance, dry cough, loss of sense of smell and taste. EMS notified and upon arrival the patient was found to be in distress. Patient was found to have a pulse oximetry of 62% on room air. Patient placed on nonrebreather mask with improvement of pulse oximetry up to 76%. The patient was subsequently transported to [facility] for further care and evaluation of the aforementioned symptoms. Patient seen and evaluated in the emergency department. All lab and imaging studies reviewed. Patient found to have a follow-up pulse oximetry of 60% on nonrebreather mask and was subsequently placed on high flow submental oxygen with mild improvement in symptoms. Patient underwent chest x-ray which revealed bilateral pneumonia. Patient admitted to medical floor due to increased risk of pulmonary decompensation. Patient initiated on pneumonia protocol. Patient also initiated on coronavirus protocol. Patient denies chills, chest pain, palpitations, skin rash, recent ill contacts. No prior admission for review. No medication listed at time of admission for reconciliation. Day #2 01/24/2020 Patient tested positive for coronavirus PCR Patient on high flow oxygen Continue IV Decadron ID consult to be requested Day #3 01/25/2020 Patient on high flow oxygen and IV Decadron Continue antibiotics Day #4 01/26/2020 Patient on high flow oxygen and IV Decadron Day #5 01/27/2020 Patient on high flow oxygen and IV Decadron Day #6 01/28/2020 On high flow oxygen and IV Decadron Day #7 01/29/2020 On high oxygen and IV Decadron Day #8 01/30/2020 On high flow oxygen and IV Decadron Day #9 01/31/2020 On high flow oxygen and IV Decadron Insulin dosage adjusted Day #10 02/01/2020 Patient still on high flow oxygen Not much improvement Objective - Constitutional Vitals: Vital Signs - 12hr 02/01/20 02/01/20 02/01/20 09:00 10:00 12:01 Temperature 97.3 F L Pulse Rate 116 H Pulse Rate [ 110 H Left Posterior Tibial] Pulse Rate [ 110 H Right Posterior Tibial] Pulse Rate [ 110 H Right Radial] Respiratory 26 H 22 Rate Blood Pressure 122/75 O2 Sat by Pulse 94 95 94 Oximetry 02/01/20 02/01/20 15:05 16:48 Temperature 98.1 F Pulse Rate 101 H Pulse Rate [ Left Posterior Tibial] Pulse Rate [ Right Posterior Tibial] Pulse Rate [ Right Radial] Respiratory 18 Rate Blood Pressure 97/65 O2 Sat by Pulse 91 96 Oximetry General appearance: Present: mild distress, well-nourished - EENT Eyes: PERRL, EOM intact ENT: hearing intact, clear oral mucosa Ears: bilateral: normal - Neck Neck: supple, normal ROM - Respiratory Respiratory effort: normal Respiratory: bilateral: CTA, rhonchi (Scattered rhonchi) - Breasts Breasts: normal - Cardiovascular Heart rate: 78 Rhythm: regular Heart Sounds: Present: S1 & S2. Absent: gallop, rub Extremities: pulses intact, No edema, normal color, Full ROM - Gastrointestinal General gastrointestinal: Present: soft, non-tender, non-distended, normal bowel sounds - Genitourinary Male genitourinary: normal - Integumentary Integumentary: clear, warm, dry - Musculoskeletal Musculoskeletal: 1, strength equal bilaterally - Neurologic Neurologic: moves all extremities - Psychiatric Psychiatric: memory intact, appropriate mood/affect, intact judgment & insight - Labs CBC & Chem 7: 01/23/20 13:52 01/30/20 10:51 Labs: Abnormal lab results 01/31/20 02/01/2020 Range/Units 21:33 12:03 16:45 POC Glucose 223 H 178 H 173 H (70-105) mg/dL
[2020-02-02] MEDS: INSULIN NPH/REGULAR 70/30 INJ SUB-Q SCH ×2 (08:07→17:45)
[2020-02-02] MEDS: HEPARIN 5,000 UNIT/1 ML VIAL SUB-Q SCH ×2 (11:15→21:37)
[2020-02-02] MEDS: DEXAMETHASONE 4 MG TAB PO SCH (11:15)
[2020-02-02] MEDS: guaiFENesin/CODEINE 100-10MG ORAL LIQD 5 ML PO PRN ×2 (12:19→17:45)
--- NOTE | 2020-02-02 22:31 | Progress Note ---
Assessment and Plan (1) Acute hypoxemic respiratory failure Current Visit: Yes Status: Acute Plan to address problem: High flow oxygen (2) Suspected 2019 novel coronavirus infection Current Visit: Yes Status: Acute Plan to address problem: Coronavirus PCR positive IV Decadron for now (3) Bilateral pneumonia Current Visit: Yes Status: Acute Plan to address problem: IV antibiotics stopped 4) IDDM insulin dosage adjusted (5) DVT prophylaxis Current Visit: Yes Status: Acute Plan to address problem: SCD to bilateral lower extremities while in bed, prophylactic anticoagulation Subjective Date of service: 02/02/20 Principal diagnosis: Acute respiratory failure with hypoxia, Covid pneumonia Interval history: 54 YO Male with NO PMH found to have Positive coronavirus test 3 days ago presents to ED for evaluation. Patient states he has experienced shortness of breath over the past 1 week with progressively worsening symptoms over the last 3 days. Patient was seen and evaluated by his primary care physician and found to have a positive coronavirus test 3 days ago and was treated with outpatient antibiotic and steroid therapy. Patient states that he has experienced worsening symptoms. Patient knowledges shortness of breath, fever, malaise, dec reased exercise tolerance, dry cough, loss of sense of smell and taste. EMS notified and upon arrival the patient was found to be in distress. Patient was found to have a pulse oximetry of 62% on room air. Patient placed on nonrebreather mask with improvement of pulse oximetry up to 76%. The patient was subsequently transported to [facility] for further care and evaluation of the aforementioned symptoms. Patient seen and evaluated in the emergency department. All lab and imaging studies reviewed. Patient found to have a follow-up pulse oximetry of 60% on nonrebreather mask and was subsequently placed on high flow submental oxygen with mild improvement in symptoms. Patient underwent chest x-ray which revealed bilateral pneumonia. Patient admitted to medical floor due to increased risk of pulmonary decompensation. Patient initiated on pneumonia protocol. Patient also initiated on coronavirus protocol. Patient denies chills, chest pain, palpitations, skin rash, recent ill contacts. No prior admission for review. No medication listed at time of admission for reconciliation. Day #2 01/24/2020 Patient tested positive for coronavirus PCR Patient on high flow oxygen Continue IV Decadron ID consult to be requested Day #3 01/25/2020 Patient on high flow oxygen and IV Decadron Continue antibiotics Day #4 01/26/2020 Patient on high flow oxygen and IV Decadron Day #5 01/27/2020 Patient on high flow oxygen and IV Decadron Day #6 01/28/2020 On high flow oxygen and IV Decadron Day #7 01/29/2020 On high oxygen and IV Decadron Day #8 01/30/2020 On high flow oxygen and IV Decadron Day #9 01/31/2020 On high flow oxygen and IV Decadron Insulin dosage adjusted Day #10 02/01/2020 Patient still on high flow oxygen Not much improvement Day #11 Patient on high flow oxygen Patient on IV Decadron Objective - Constitutional Vitals: Vital Signs - 12hr 02/02/20 02/02/20 02/02/20 11:32 17:45 20:56 Temperature 97.7 F Pulse Rate 96 H Respiratory 20 Rate Blood Pressure 100/70 O2 Sat by Pulse 95 94 97 Oximetry General appearance: Present: mild distress, well-nourished - EENT Eyes: PERRL, EOM intact ENT: hearing intact, clear oral mucosa Ears: bilateral: normal - Neck Neck: supple, normal ROM - Respiratory Respiratory effort: normal Respiratory: bilateral: CTA, rhonchi (Scattered rhonchi) - Breasts Breasts: normal - Cardiovascular Heart rate: 78 Rhythm: regular Heart Sounds: Present: S1 & S2. Absent: gallop, rub Extremities: pulses intact, No edema, normal color, Full ROM - Gastrointestinal General gastrointestinal: Present: soft, non-tender, non-distended, normal bowel sounds - Genitourinary Male genitourinary: normal - Integumentary Integumentary: clear, warm, dry - Musculoskeletal Musculoskeletal: 1, strength equal bilaterally - Neurologic Neurologic: moves all extremities - Psychiatric Psychiatric: memory intact, appropriate mood/affect, intact judgment & insight - Labs CBC & Chem 7: 01/23/20 13:52 01/30/20 10:51 Labs: Abnormal lab results 02/02/20 02/02/20 Range/Units 11:32 16:19 POC Glucose 201 H 260 H (70-105) mg/dL
[2020-02-03] MEDS: guaiFENesin/CODEINE 100-10MG ORAL LIQD 5 ML PO PRN ×2 (05:25→21:40)
[2020-02-03] MEDS: traMADol 50 MG TAB PO PRN (08:22)
[2020-02-03] MEDS: HEPARIN 5,000 UNIT/1 ML VIAL SUB-Q SCH ×2 (10:51→21:41)
[2020-02-03] MEDS: HYDROmorphone 1 MG/1 ML INJ IV PRN ×4 (10:51→21:41)
[2020-02-03] MEDS: DEXAMETHASONE 4 MG TAB PO SCH (10:52)
[2020-02-03] MEDS: INSULIN NPH/REGULAR 70/30 INJ SUB-Q SCH ×2 (10:53→17:04)
--- NOTE | 2020-02-03 17:33 | Progress Note ---
Assessment and Plan (1) Acute hypoxemic respiratory failure Current Visit: Yes Status: Acute Plan to address problem: High flow oxygen (2) Suspected 2019 novel coronavirus infection Current Visit: Yes Status: Acute Plan to address problem: Coronavirus PCR positive IV Decadron for now ID consult requested (3) Bilateral pneumonia Current Visit: Yes Status: Acute Plan to address problem: IV antibiotics stopped 4) IDDM insulin dosage adjusted (5) DVT prophylaxis Current Visit: Yes Status: Acute Plan to address problem: SCD to bilateral lower extremities while in bed, prophylactic anticoagulation Subjective Date of service: 02/03/20 Principal diagnosis: Acute respiratory failure with hypoxia, COVID-19 positive test (U07.1, CO Interval history: 54 YO Male with NO PMH found to have Positive coronavirus test 3 days ago presents to ED for evaluation. Patient states he has experienced shortness of breath over the past 1 week with progressively worsening symptoms over the last 3 days. Patient was seen and evaluated by his primary care physician and found to have a positive coronavirus test 3 days ago and was treated with outpatient antibiotic and steroid therapy. Patient states that he has experienced worsening symptoms. Patient knowledges shortness of breath, fever, malaise, decreased exercise tolerance, dry cough, loss of sense of smell and taste. EMS notified and upon arrival the patient was found to be in distress. Patient was found to have a pulse oximetry of 62% on room air. Patient placed on nonrebreather mask with improvement of pulse oximetry up to 76%. The patient was subsequently transported to [facility] for further care and evaluation of the aforementioned symptoms. Patient seen and evaluated in the emergency department. All lab and imaging studies reviewed. Patient found to have a follow-up pulse oximetry of 60% on nonrebreather mask and was subsequently placed on high flow submental oxygen with mild improvement in symptoms. Patient underwent chest x-ray which revealed bilateral pneumonia. Patient admitted to medical floor due to increased risk of pulmonary decompensation. Patient initiated on pneumonia protocol. Patient also initiated on coronavirus protocol. Patient denies chills, chest pain, palpitations, skin rash, recent ill contacts. No prior admission for review. No medication listed at time of admission for reconciliation. Day #2 01/24/2020 Patient tested positive for coronavirus PCR Patient on high flow oxygen Continue IV Decadron ID consult to be requested Day #3 01/25/2020 Patient on high flow oxygen and IV Decadron Continue antibiotics Day #4 01/26/2020 Patient on high flow oxygen and IV Decadron Day #5 01/27/2020 Patient on high flow oxygen and IV Decadron Day #6 01/28/2020 On high flow oxygen and IV Decadron Day #7 01/29/2020 On high oxygen and IV Decadron Day #8 01/30/2020 On high flow oxygen and IV Decadron Day #9 01/31/2020 On high flow oxygen and IV Decadron Insulin dosage adjusted Day #10 02/01/2020 Patient still on high flow oxygen Not much improvement Day #11 Patient on high flow oxygen Patient on IV Decadron Day #12 Patient still on high flow oxygen No improvement We will get ID consult Patient may benefit from convalescent plasma Objective - Constitutional Vitals: Vital Signs - 12hr 02/03/20 02/03/20 02/03/20 08:35 10:00 11:42 Temperature 98.8 F Pulse Rate 95 H Respiratory 20 18 Rate Blood Pressure 96/70 O2 Sat by Pulse 90 95 94 Oximetry General appearance: Present: mild distress, well-nourished - EENT Eyes: PERRL, EOM intact ENT: hearing intact, clear oral mucosa Ears: bilateral: normal - Neck Neck: supple, normal ROM - Respiratory Respiratory effort: normal Respiratory: bilateral: CTA, rhonchi (Scattered rhonchi) - Breasts Breasts: normal - Cardiovascular Rhythm: regular Heart Sounds: Present: S1 & S2. Absent: gallop, rub Extremities: pulses intact, No edema, normal color, Full ROM - Gastrointestinal General gastrointestinal: Present: soft, non-tender, non-distended, normal bowel sounds - Genitourinary Male genitourinary: normal - Integumentary Integumentary: clear, warm, dry - Musculoskeletal Musculoskeletal: 1, strength equal bilaterally - Neurologic Neurologic: moves all extremities - Psychiatric Psychiatric: memory intact, appropriate mood/affect, intact judgment & insight - Labs CBC & Chem 7: 01/23/20 13:52 01/30/20 10:51 Labs: Abnormal lab results 02/02/20 02/03/20 02/03/20 Range/Units 22:40 07:50 11:09 POC Glucose 294 H 247 H 276 H (70-105) mg/dL 02/03/20 Range/Units 15:55 POC Glucose 254 H (70-105) mg/dL
[2020-02-03 20:45] LABS: C-Reactive Protein 16.9 mg/dL (0.00-1.30)
[2020-02-03] MEDS: INSULIN LISPRO 100 UNIT/ML VIAL 3 mL SUB-Q SCH (21:40)
[2020-02-04] MEDS: guaiFENesin/CODEINE 100-10MG ORAL LIQD 5 ML PO PRN (04:27)
[2020-02-04] MEDS: INSULIN NPH/REGULAR 70/30 INJ SUB-Q SCH ×2 (07:49→17:35)
[2020-02-04] MEDS: INSULIN LISPRO 100 UNIT/ML VIAL 3 mL SUB-Q SCH ×3 (09:00→21:36)
[2020-02-04] MEDS: DEXAMETHASONE 4 MG TAB PO SCH (09:49)
[2020-02-04] MEDS: HEPARIN 5,000 UNIT/1 ML VIAL SUB-Q SCH ×2 (10:30→21:34)
[2020-02-04] MEDS: traMADol 50 MG TAB PO PRN (13:18)
--- NOTE | 2020-02-04 14:09 | Consultation ---
History of Present Illness Consult date: 02/04/20 Reason for consult: dyspnea, cough, hypoxemia, pneumonia History of present illness: 54 YO Male with NO PMH found to have Positive coronavirus test 3 days ago presents to ED for evaluation. Patient states he has experienced shortness of breath over the past 1 week with progressively worsening symptoms over the last 3 days. Patient was seen and evaluated by his primary care physician and found to have a positive coronavirus test 3 days ago and was treated with outpatient antibiotic and steroid therapy. Patient states that he has experienced worsening symptoms. Patient knowledges shortness of breath, fever, malaise, decreased exercise tolerance, dry cough, loss of sense of smell and taste. EMS notified and upon arrival the patient was found to be in distress. Patient was found to have a pulse oximetry of 62% on room air. Patient placed on nonrebreather mask with improvement of pulse oximetry up to 76%. The patient was subsequently transported to [facility] for further care and evaluation of the aforementioned symptoms. Patient seen and evaluated in the emergency department. All lab and imaging studies reviewed. Patient found to have a follow-up pulse oximetry of 60% on nonrebreather mask and was subsequently placed on high flow submental oxygen with mild improvement in symptoms. Patient underwent chest x-ray which revealed bilateral pneumonia. Patient admitted to medical floor due to increased risk of pulmonary decompensation. Patient initiated on pneumonia protocol. Patient also initiated on coronavirus protocol. Patient denies chills, chest pain, palpitations, skin rash, recent ill contacts. Patient presently on vapotherm 100% and o2 saturation running . O2 saturation running 90%. ABG on 100% FIO2. ABG pH 7.437 pH Units (7.350-7.450) 01/23/20 21:55 ABG pCO2 27.5 mm Hg 01/23/20 21:55 ABG pO2 63.2 mm Hg (80.0-90.0) L 01/23/20 21:55 ABG O2 Saturation 94.9 % (95.0-99.0) L 01/23/20 21:55 Patient afebrile and has leukocytosis. Chest xray done 02/04/20 reported Severe bilateral lower lobe airspace disease has slightly worsened from 01/23/2020. Serum ferritin 2572 LDH 373 C reactive protein 26.2. Lactic acid 9.1. Patient is on cefepime, vancomycin, dexamethasone, S/C heparin. Past History Past Medical History: No medical history Past Surgical History: No surgical history Social history: single. denies: smoking, alcohol abuse, prescription drug abuse Family history: no significant family history Medications and Allergies Allergies Allergy/AdvReac Type Severity Reaction Status Date / Time No Known Allergies Allergy Unverified 01/23/20 16:20 Home Medications Medication Instructions Recorded Confirmed Last Taken Type No Known Home Medications [No 02/01/20 02/01/20 Unknown History Reported Home Medications] Active Meds: Active Medications Heparin Sodium (Porcine) (Heparin) 5,000 unit SUB-Q Q12HR [facility] Last Admin: 02/03/20 21:41 Dose: 5,000 unit Documented by: Hydromorphone HCl (Dilaudid) 0.5 mg IV Q3H PRN PRN Reason: Pain , Severe (7-10) Last Admin: 02/03/20 21:41 Dose: 0.5 mg Documented by: Insulin Human Isoph/Insulin Regular (Humulin 70/30) 20 unit SUB-Q BIDDIAB [facility] Last Admin: 02/04/20 07:49 Dose: 20 unit Documented by: Insulin Human Lispro (Humalog) 0 unit SUB-Q ACHS [facility]; Protocol Last Admin: 02/04/20 09:00 Dose: 3 unit Documented by: Pseudoephedrine/Acetam/Chlorphenir (Robitussin Ac) 10 ml PO Q4H PRN PRN Reason: Cough Last Admin: 02/04/20 04:27 Dose: 10 ml Documented by: Tramadol HCl (Ultram) 50 mg PO Q6H PRN PRN Reason: Pain, Moderate (4-6) Last Admin: 02/04/20 13:18 Dose: 50 mg Documented by: Review of Systems All systems: negative Physical Examination Vital signs: Vital Signs Temp Pulse Resp BP Pulse Ox 98.7 F 107 H 18 115/66 100 01/23/20 13:38 01/23/20 13:38 01/23/20 13:38 01/23/20 13:38 01/23/20 13:38 General appearance: alert, appears uncomfortable, other (Mild respiratory distress. On 100% FIO2 and on vapotherm.) Eyes: non-icteric ENT: oropharynx moist Neck: supple, no JVD Effort: mildly labored Ascultation: Bilateral: rhonchi Cardiovascular: other (Tachycardia.) Gastrointestinal: normoactive bowel sounds, soft, non-tender Integumentary: normal Extremities: no cyanosis, no edema Musculoskeletal: no deformities Gait: other (Resting in bed.) non-focal exam, pupils equal and round, CN II-XII normal depressed Results - Laboratory Findings CBC and BMP: 02/04/20 15:57 02/04/20 15:57 ABG ABG pH 7.437 pH Units (7.350-7.450) 01/23/20 21:55 ABG pCO2 27.5 mm Hg 01/23/20 21:55 ABG pO2 63.2 mm Hg (80.0-90.0) L 01/23/20 21:55 ABG O2 Saturation 94.9 % (95.0-99.0) L 01/23/20 21:55 PT/INR, D-dimer PT 14.6 Sec. (12.2-14.9) 01/23/20 13:52 INR 1.15 (0.87-1.13) H 01/23/20 13:52 D-Dimer 1374.52 ng/mlDDU (0-234) H 02/03/20 19:28 Abnormal lab findings: Abnormal Labs 01/23/20 01/23/20 01/23/20 08:20 13:52 13:52 WBC 14.5 H Hgb 15.8 H MCHC 35 H Seg Neuts % (Manual) 89.0 H Lymphocytes % (Manual) 4.0 L Nucleated RBC % 1.0 H Seg Neutrophils # Man 12.9 H Lymphocytes # (Manual) 0.6 L INR 1.15 H APTT 23.7 L D-Dimer > 45710 H ABG pO2 ABG HCO3 ABG O2 Saturation ABG Base Excess Oxyhemoglobin Sodium Chloride Carbon Dioxide BUN Creatinine Glucose POC Glucose Lactic Acid Ferritin Alkaline Phosphatase Lactate Dehydrogenase C-Reactive Protein Total Protein Albumin Coronavirus (PCR) Positive A 01/23/20 01/23/20 01/23/20 13:52 13:52 13:52 WBC Hgb MCHC Seg Neuts % (Manual) Lymphocytes % (Manual) Nucleated RBC % Seg Neutrophils # Man Lymphocytes # (Manual) INR APTT D-Dimer ABG pO2 ABG HCO3 ABG O2 Saturation ABG Base Excess Oxyhemoglobin Sodium 131 L Chloride 92.3 L Carbon Dioxide 21 L BUN 23 H Creatinine 0.6 L Glucose 394 H 393 H POC Glucose Lactic Acid 3.50 H* Ferritin Alkaline Phosphatase 216 H Lactate Dehydrogenase 443 H C-Reactive Protein 9.50 H Total Protein Albumin 3.2 L Coronavirus (PCR) 01/23/20 01/23/20 01/24/20 13:52 21:55 15:41 WBC Hgb MCHC Seg Neuts % (Manual) Lymphocytes % (Manual) Nucleated RBC % Seg Neutrophils # Man Lymphocytes # (Manual) INR APTT D-Dimer ABG pO2 63.2 L ABG HCO3 18.1 L ABG O2 Saturation 94.9 L ABG Base Excess -4.5 L Oxyhemoglobin 93.4 L Sodium Chloride Carbon Dioxide BUN Creatinine Glucose POC Glucose 322 H Lactic Acid Ferritin 2821.0 H Alkaline Phosphatase Lactate Dehydrogenase C-Reactive Protein Total Protein Albumin Coronavirus (PCR) 01/24/20 01/25/20 01/25/20 22:48 08:15 11:45 WBC Hgb MCHC Seg Neuts % (Manual) Lymphocytes % (Manual) Nucleated RBC % Seg Neutrophils # Man Lymphocytes # (Manual) INR APTT D-Dimer ABG pO2 ABG HCO3 ABG O2 Saturation ABG Base Excess Oxyhemoglobin Sodium Chloride Carbon Dioxide BUN Creatinine Glucose POC Glucose 374 H 348 H 399 H Lactic Acid Ferritin Alkaline Phosphatase Lactate Dehydrogenase C-Reactive Protein Total Protein Albumin Coronavirus (PCR) 01/25/20 01/25/20 01/26/20 16:38 20:23 08:11 WBC Hgb MCHC Seg Neuts % (Manual) Lymphocytes % (Manual) Nucleated RBC % Seg Neutrophils # Man Lymphocytes # (Manual) INR APTT D-Dimer ABG pO2 ABG HCO3 ABG O2 Saturation ABG Base Excess Oxyhemoglobin Sodium Chloride Carbon Dioxide BUN Creatinine Glucose POC Glucose 376 H 349 H 299 H Lactic Acid Ferritin Alkaline Phosphatase Lactate Dehydrogenase C-Reactive Protein Total Protein Albumin Coronavirus (PCR) 01/26/20 01/26/20 01/26/20 10:01 11:50 17:43 WBC Hgb MCHC Seg Neuts % (Manual) Lymphocytes % (Manual) Nucleated RBC % Seg Neutrophils # Man Lymphocytes # (Manual) INR APTT D-Dimer ABG pO2 ABG HCO3 ABG O2 Saturation ABG Base Excess Oxyhemoglobin Sodium Chloride Carbon Dioxide BUN Creatinine Glucose POC Glucose 361 H 305 H Lactic Acid Ferritin Alkaline Phosphatase Lactate Dehydrogenase C-Reactive Protein Total Protein Albumin Coronavirus (PCR) Positive A 01/26/20 01/27/20 01/27/20 23:11 07:47 12:18 WBC Hgb MCHC Seg Neuts % (Manual) Lymphocytes % (Manual) Nucleated RBC % Seg Neutrophils # Man Lymphocytes # (Manual) INR APTT D-Dimer ABG pO2 ABG HCO3 ABG O2 Saturation ABG Base Excess Oxyhemoglobin Sodium Chloride Carbon Dioxide BUN Creatinine Glucose POC Glucose 271 H 227 H 289 H Lactic Acid Ferritin Alkaline Phosphatase Lactate Dehydrogenase C-Reactive Protein Total Protein Albumin Coronavirus (PCR) 01/27/20 01/27/20 01/27/20 13:25 13:25 17:31 WBC Hgb MCHC Seg Neuts % (Manual) Lymphocytes % (Manual) Nucleated RBC % Seg Neutrophils # Man Lymphocytes # (Manual) INR APTT D-Dimer > 92572 H ABG pO2 ABG HCO3 ABG O2 Saturation ABG Base Excess Oxyhemoglobin Sodium 135 L Chloride Carbon Dioxide BUN 27 H Creatinine 0.5 L Glucose 282 H POC Glucose 255 H Lactic Acid Ferritin Alkaline Phosphatase 161 H Lactate Dehydrogenase C-Reactive Protein Total Protein 5.8 L D Albumin 2.7 L Coronavirus (PCR) 01/27/20 01/28/20 01/28/20 21:30 08:00 12:19 WBC Hgb MCHC Seg Neuts % (Manual) Lymphocytes % (Manual) Nucleated RBC % Seg Neutrophils # Man Lymphocytes # (Manual) INR APTT D-Dimer ABG pO2 ABG HCO3 ABG O2 Saturation ABG Base Excess Oxyhemoglobin Sodium Chloride Carbon Dioxide BUN Creatinine Glucose POC Glucose 256 H 178 H 247 H Lactic Acid Ferritin Alkaline Phosphatase Lactate Dehydrogenase C-Reactive Protein Total Protein Albumin Coronavirus (PCR) 01/28/20 01/28/20 01/29/20 18:03 21:58 12:21 WBC Hgb MCHC Seg Neuts % (Manual) Lymphocytes % (Manual) Nucleated RBC % Seg Neutrophils # Man Lymphocytes # (Manual) INR APTT D-Dimer ABG pO2 ABG HCO3 ABG O2 Saturation ABG Base Excess Oxyhemoglobin Sodium Chloride Carbon Dioxide BUN Creatinine Glucose POC Glucose 228 H 204 H 110 H Lactic Acid Ferritin Alkaline Phosphatase Lactate Dehydrogenase C-Reactive Protein Total Protein Albumin Coronavirus (PCR) 01/29/20 01/29/20 01/30/20 16:57 23:16 08:36 WBC Hgb MCHC Seg Neuts % (Manual) Lymphocytes % (Manual) Nucleated RBC % Seg Neutrophils # Man Lymphocytes # (Manual) INR APTT D-Dimer ABG pO2 ABG HCO3 ABG O2 Saturation ABG Base Excess Oxyhemoglobin Sodium Chloride Carbon Dioxide BUN Creatinine Glucose POC Glucose 146 H 238 H 180 H Lactic Acid Ferritin Alkaline Phosphatase Lactate Dehydrogenase C-Reactive Protein Total Protein Albumin Coronavirus (PCR) 01/30/20 01/30/20 01/30/20 10:50 10:51 10:51 WBC Hgb MCHC Seg Neuts % (Manual) Lymphocytes % (Manual) Nucleated RBC % Seg Neutrophils # Man Lymphocytes # (Manual) INR APTT D-Dimer 4460.42 H ABG pO2 ABG HCO3 ABG O2 Saturation ABG Base Excess Oxyhemoglobin Sodium Chloride Carbon Dioxide BUN Creatinine Glucose POC Glucose Lactic Acid Ferritin 1652.0 H Alkaline Phosphatase Lactate Dehydrogenase 341 H C-Reactive Protein 19.70 H Total Protein Albumin Coronavirus (PCR) 01/30/20 01/30/20 01/30/20 10:51 13:08 23:30 WBC Hgb MCHC Seg Neuts % (Manual) Lymphocytes % (Manual) Nucleated RBC % Seg Neutrophils # Man Lymphocytes # (Manual) INR APTT D-Dimer ABG pO2 ABG HCO3 ABG O2 Saturation ABG Base Excess Oxyhemoglobin Sodium 129 L Chloride 94.6 L Carbon Dioxide BUN Creatinine 0.5 L Glucose 172 H POC Glucose 155 H 222 H Lactic Acid Ferritin Alkaline Phosphatase Lactate Dehydrogenase C-Reactive Protein Total Protein Albumin Coronavirus (PCR) 01/31/20 01/31/20 01/31/20 07:39 11:45 15:50 WBC Hgb MCHC Seg Neuts % (Manual) Lymphocytes % (Manual) Nucleated RBC % Seg Neutrophils # Man Lymphocytes # (Manual) INR APTT D-Dimer ABG pO2 ABG HCO3 ABG O2 Saturation ABG Base Excess Oxyhemoglobin Sodium Chloride Carbon Dioxide BUN Creatinine Glucose POC Glucose 171 H 141 H 154 H Lactic Acid Ferritin Alkaline Phosphatase Lactate Dehydrogenase C-Reactive Protein Total Protein Albumin Coronavirus (PCR) 01/31/20 02/01/20 02/01/20 21:33 12:03 16:45 WBC Hgb MCHC Seg Neuts % (Manual) Lymphocytes % (Manual) Nucleated RBC % Seg Neutrophils # Man Lymphocytes # (Manual) INR APTT D-Dimer ABG pO2 ABG HCO3 ABG O2 Saturation ABG Base Excess Oxyhemoglobin Sodium Chloride Carbon Dioxide BUN Creatinine Glucose POC Glucose 223 H 178 H 173 H Lactic Acid Ferritin Alkaline Phosphatase Lactate Dehydrogenase C-Reactive Protein Total Protein Albumin Coronavirus (PCR) 02/01/20 02/02/20 02/02/20 21:34 11:32 16:19 WBC Hgb MCHC Seg Neuts % (Manual) Lymphocytes % (Manual) Nucleated RBC % Seg Neutrophils # Man Lymphocytes # (Manual) INR APTT D-Dimer ABG pO2 ABG HCO3 ABG O2 Saturation ABG Base Excess Oxyhemoglobin Sodium Chloride Carbon Dioxide BUN Creatinine Glucose POC Glucose 138 H 201 H 260 H Lactic Acid Ferritin Alkaline Phosphatase Lactate Dehydrogenase C-Reactive Protein Total Protein Albumin Coronavirus (PCR) 02/02/20 02/03/20 02/03/20 22:40 07:50 11:09 WBC Hgb MCHC Seg Neuts % (Manual) Lymphocytes % (Manual) Nucleated RBC % Seg Neutrophils # Man Lymphocytes # (Manual) INR APTT D-Dimer ABG pO2 ABG HCO3 ABG O2 Saturation ABG Base Excess Oxyhemoglobin Sodium Chloride Carbon Dioxide BUN Creatinine Glucose POC Glucose 294 H 247 H 276 H Lactic Acid Ferritin Alkaline Phosphatase Lactate Dehydrogenase C-Reactive Protein Total Protein Albumin Coronavirus (PCR) 02/03/20 02/03/20 02/03/20 15:55 19:28 19:28 WBC Hgb MCHC Seg Neuts % (Manual) Lymphocytes % (Manual) Nucleated RBC % Seg Neutrophils # Man Lymphocytes # (Manual) INR APTT D-Dimer 1374.52 H ABG pO2 ABG HCO3 ABG O2 Saturation ABG Base Excess Oxyhemoglobin Sodium Chloride Carbon Dioxide BUN Creatinine Glucose POC Glucose 254 H Lactic Acid Ferritin 2169.0 H Alkaline Phosphatase Lactate Dehydrogenase C-Reactive Protein Total Protein Albumin Coronavirus (PCR) 02/03/20 02/03/20 02/04/20 19:28 21:08 08:00 WBC Hgb MCHC Seg Neuts % (Manual) Lymphocytes % (Manual) Nucleated RBC % Seg Neutrophils # Man Lymphocytes # (Manual) INR APTT D-Dimer ABG pO2 ABG HCO3 ABG O2 Saturation ABG Base Excess Oxyhemoglobin Sodium Chloride Carbon Dioxide BUN Creatinine Glucose POC Glucose 206 H 175 H Lactic Acid Ferritin Alkaline Phosphatase Lactate Dehydrogenase 433 H C-Reactive Protein 16.90 H Total Protein Albumin Coronavirus (PCR) 02/04/20 Unknown WBC Hgb MCHC Seg Neuts % (Manual) Lymphocytes % (Manual) Nucleated RBC % Seg Neutrophils # Man Lymphocytes # (Manual) INR APTT D-Dimer ABG pO2 ABG HCO3 ABG O2 Saturation ABG Base Excess Oxyhemoglobin Sodium Chloride Carbon Dioxide BUN Creatinine Glucose POC Glucose Lactic Acid Ferritin Alkaline Phosphatase Lactate Dehydrogenase C-Reactive Protein Total Protein Albumin Coronavirus (PCR) Positive A - Diagnostic Findings Chest x-ray: report reviewed, image reviewed Additional studies: Chest 2 view 02/04/20 INDICATION: Dyspnea IMPRESSION: Severe bilateral lower lobe airspace disease has slightly worsened from 01/23/2020. CHEST 1 VIEW 01/23/20 INDICATION / CLINICAL INFORMATION: Dyspnea. FINDINGS: SUPPORT DEVICES: None. HEART / MEDIASTINUM: No significant abnormality. LUNGS / PLEURA: Severe bilateral airspace pneumonia, lower lobe predominant. 09/16 Assessment and Plan 4 YO Male with NO PMH found to have Positive coronavirus test 3 days ago presents to ED for evaluation. Patient states he has experienced shortness of breath over the past 1 week with progressively worsening symptoms over the last 3 days. Patient was seen and evaluated by his primary care physician and found to have a positive coronavirus test 3 days ago and was treated with outpatient antibiotic and steroid therapy. Patient states that he has experienced w orsening symptoms. Patient knowledges shortness of breath, fever, malaise, decreased exercise tolerance, dry cough, loss of sense of smell and taste. EMS notified and upon arrival the patient was found to be in distress. Patient was found to have a pulse oximetry of 62% on room air. Patient placed on nonrebreather mask with improvement of pulse oximetry up to 76%. The patient was subsequently transported to [facility] for further care and evaluation of the aforementioned symptoms. Patient seen and evaluated in the emergency department. All lab and imaging studies reviewed. Patient found to have a follow-up pulse oximetry of 60% on nonrebreather mask and was subsequently placed on high flow submental oxygen with mild improvement in symptoms. Patient underwent chest x-ray which revealed bilateral pneumonia. Patient admitted to medical floor due to increased risk of pulmonary decompensation. Patient initiated on pneumonia protocol. Patient also initiated on coronavirus protocol. Patient denies chills, chest pain, palpitations, skin rash, recent ill contacts. Patient presently on vapotherm 100% and o2 saturation running . O2 saturation running 90%. ABG on 100% FIO2. ABG pH 7.437 pH Units (7.350-7.450) 01/23/20 21:55 ABG pCO2 27.5 mm Hg 01/23/20 21:55 ABG pO2 63.2 mm Hg (80.0-90.0) L 01/23/20 21:55 ABG O2 Saturation 94.9 % (95.0-99.0) L 01/23/20 21:55 Patient afebrile and has leukocytosis. Chest xray done 02/04/20 reported Severe bilateral lower lobe airspace disease has slightly worsened from 01/23/2020. Serum ferritin 2572 LDH 373 C reactive protein 26.2. Lactic acid 9.1 Patient is on cefepime, vancomycin, dexamethasone, S/C heparin. - Patient Problems (1) Acute hypoxemic respiratory failure Current Visit: Yes Status: Acute Plan to address problem: Patient is on vapotherm , FIO2 100%. Patient is on dexamethasone. Patient is on S/C heparin. (2) Bilateral pneumonia Current Visit: Yes Status: Acute Plan to address problem: Patient is on cefepime, vancomycin, (3) Pneumonia due to COVID-19 virus Current Visit: Yes Status: Acute Plan to address problem: Patient positive for COVID-19. Management as per infectious diseases.
--- NOTE | 2020-02-04 15:23 | Consultation ---
History of Present Illness - Reason for Consult Consult date: 02/04/20 COVID on HFNC Requesting physician: LAILA LOAIZA - History of Present Illness 54 years old male with no medical history, admitted on 01/23/2020, initially tested positive for COVID-19 on 01/23/2020, admitted on secondary to few days history of worsening cough, generalized malaise, shortness of breath, dyspnea on exertion, loss of smell and taste. Patient called EMS and found to have pulse oximetry of 62% on room air. Patient was placed on nonrebreather. Patient already completed remdesivir and dexamethasone. Unfortunately patient is now on high flow nasal cannula. Review of Systems: reviewed ED and H&P notes. Limited due to PPE conservation strategy Past History Past Medical History: No medical history Past Surgical History: No surgical history Social history: single. denies: smoking, alcohol abuse, prescription drug abuse Family history: no significant family history Medications and Allergies Allergies Allergy/AdvReac Type Severity Reaction Status Date / Time No Known Allergies Allergy Unverified 01/23/20 16:20 Home Medications Medication Instructions Recorded Confirmed Last Taken Type No Known Home Medications [No 02/01/20 02/01/20 Unknown History Reported Home Medications] Active Meds: Active Medications Heparin Sodium (Porcine) (Heparin) 5,000 unit SUB-Q Q12HR REPLACED BY [facility] Last Admin: 02/03/20 21:41 Dose: 5,000 unit Documented by: Hydromorphone HCl (Dilaudid) 0.5 mg IV Q3H PRN PRN Reason: Pain , Severe (7-10) Last Admin: 02/03/20 21:41 Dose: 0.5 mg Documented by: Insulin Human Isoph/Insulin Regular (Humulin 70/30) 20 unit SUB-Q BIDDIAB REPLACED BY [facility] Last Admin: 02/04/20 07:49 Dose: 20 unit Documented by: Insulin Human Lispro (Humalog) 0 unit SUB-Q [facility]; Protocol Last Admin: 02/04/20 09:00 Dose: 3 unit Documented by: Pseudoephedrine/Acetam/Chlorphenir (Robitussin Ac) 10 ml PO Q4H PRN PRN Reason: Cough Last Admin: 02/04/20 04:27 Dose: 10 ml Documented by: Tramadol HCl (Ultram) 50 mg PO Q6H PRN PRN Reason: Pain, Moderate (4-6) Last Admin: 02/04/20 13:18 Dose: 50 mg Documented by: Physical Examination - Physical Exam Narrative exam: Physical Exam: reviewed ED and hospitalist notes, limited due to conservation of PPE and decrease risk of transmission. General appearance: limited due to conservation of PPE Eyes: limited due to conservation of PPE HENT: Atraumatic; limited due to conservation of PPE Lungs: limited due to conservation of PPE CV: limited due to conservation of PPE Abdomen: limited due to conservation of PPE Extremities: limited due to conservation of PPE Skin: limited due to conservation of PPE Psych: limited due to conservation of PPE Neuro: limited due to conservation of PPE - Constitutional Vitals: Vital Signs Temp Pulse Resp BP Pulse Ox 98.9 F 106 H 22 94/67 93 02/04/20 11:26 02/04/20 11:26 02/04/20 11:26 02/04/20 11:26 02/04/20 11:26 Temperature -Last 24 Hours Temperature 98.9 F Temperature 97.4 F Temperature 97.4 F Temperature 97.4 F Results - Labs CBC & Chem 7: 01/23/20 13:52 01/30/20 10:51 Labs: Abnormal lab results 02/03/20 02/03/20 02/03/20 Range/Units 15:55 19:28 19:28 D-Dimer 1374.52 H (0-234) ng/mlDDU POC Glucose 254 H (70-105) mg/dL Ferritin 2169.0 H (30.0-300.0) ng/mL Lactate Dehydrogenase (91-180) units/L C-Reactive Protein (0.00-1.30) mg/dL Coronavirus (PCR) (Negative) 02/03/20 02/03/20 02/04/20 Range/Units 19:28 21:08 08:00 D-Dimer (0-234) ng/mlDDU POC Glucose 206 H 175 H (70-105) mg/dL Ferritin (30.0-300.0) ng/mL Lactate Dehydrogenase 433 H (91-180) units/L C-Reactive Protein 16.90 H (0.00-1.30) mg/dL Coronavirus (PCR) (Negative) 02/04/20 Range/Units Unknown D-Dimer (0-234) ng/mlDDU POC Glucose (70-105) mg/dL Ferritin (30.0-300.0) ng/mL Lactate Dehydrogenase (91-180) units/L C-Reactive Protein (0.00-1.30) mg/dL Coronavirus (PCR) Positive A (Negative) Assessment and Plan Cultures: Blood culture 01/23/2020 no growth today SARS CoV2 PCR positive x3 Assessment: 54 years old male with no medical history, admitted on 01/23/2020, initially tested positive for COVID-19 on 01/23/2020, admitted on secondary to few days history of worsening cough, generalized malaise, shortness of breath, dyspnea on exertion, loss of smell and taste: #Severe sepsis: Noted tachycardia and hypotension. Likely due to bilateral pneumonia. Procalcitonin elevated at 0.5. #Severe COVID pneumonia: Chest x-ray with bilateral pneumonia. Very high D- dimer. Elevated markers. Completed remdesivir, Decadron and ceftriaxone azithromycin. #Acute hypoxemic respiratory failure: Currently on high flow nasal cannula. Recommendations: -Obtain blood cultures, urinalysis, sputum culture -Start cefepime and vancomycin for now -Check MRSA PCR Obtain chest x-ray and consider chest CTA rule out PE -Start Dexamethasone 6 mg IV/PO daily for 10 days -Patient completed remdesivir 5 days -Patient completed ceftriaxone and azithromycin -Monitor inflammatory markers - ferritin, Ddimer, CRP, LDH -Continue anticoagulation per System Protocol -Prone positioning as possible -Obtain SARS CoV-2 IgG to determine if patient is a candidate for COVID conva lescent plasma All laboratory, cultures and imaging were reviewed. Will follow Enriqueta Gregorio MD Infectious Diseases [employer] [facility] M [phone] O [phone]
[2020-02-04] MEDS ORDERED: VANCOMYCIN PHARMACY TO DOSE IV SCH (16:00)
[2020-02-04 16:28] LABS: Hemoglobin 15.8 gm/dl (11.8-15.2); Mean Corpuscular HGB Conc 34 % (32-34); Mean Corpuscular Volume 93 fl (84-94); Platelet Count 228 K/mm3 (140-440); Red Blood Count 5.08 M/mm3 (3.65-5.03); Red Cell Distribution Width 14.1 % (13.2-15.2)
[2020-02-04 16:37] LABS: Alanine Aminotransferase 19 units/L (7-56); Albumin 2.2 g/dL (3.9-5); Blood Urea Nitrogen 17 mg/dL (9-20); Calcium 9.1 mg/dL (8.4-10.2); Hemolysis Index 6
[2020-02-04 16:38] LABS: C-Reactive Protein 26.2 mg/dL (0.00-1.30)
[2020-02-04 16:43] LABS: BUN/Creatinine Ratio 43
[2020-02-04 17:24] LABS: Basophils % (Manual) 0 % (0.0-1.8); Eosinophils % (Manual) 0 % (0.0-4.3); RBC Morphology Normal; Total Cells Counted 100
[2020-02-04] MEDS: dexAMETHasone 4 MG/ML VIAL IV SCH ×2 (17:33→21:34)
[2020-02-04] MEDS: CEFEPIME/NS 2 GM/100 ML 2 GM/100 ML BAG IV SCH ×2 (17:35→21:34)
--- NOTE | 2020-02-04 17:37 | Vascular Lab Report ---
VL venous duplex LE BILAT INDICATION / CLINICAL INFORMATION: r/o DVT. COMPARISON: None available. FINDINGS: Extensive, acute appearing deep vein thrombosis is demonstrated on the left, involving the left commo n femoral and much of the left superficial femoral veins as well as the left calf veins. Acute appearing deep vein thrombosis is also demonstrated in the right calf veins. No deep vein throm bosis in the right leg above the knee. IMPRESSION: 1. Bilateral deep vein thrombosis, worse on the left, as described above. Signer Name: Arvin Mcdonald MD Signed: 02/04/2020 5:32 PM Workstation Name: [id number]
[2020-02-04] MEDS ORDERED: VANCOMYCIN 1,500 MG in SODIUM CHLORIDE 0.9% 500 ML 500 ML IV ONE (18:00)
--- NOTE | 2020-02-04 18:08 | XRay Report ---
Chest 2 view INDICATION: Dyspnea IMPRESSION: Severe bilateral lower lobe airspace disease has slightly worsened from 01/23/2020. Signer Name: Aryan Pina MD Signed: 02/04/2020 6:04 PM Workstation Name: [id number]
--- NOTE | 2020-02-04 23:05 | Progress Note ---
Assessment and Plan (1) Acute hypoxemic respiratory failure Current Visit: Yes Status: Acute Plan to address problem: High flow oxygen (2) Suspected 2019 novel coronavirus infection Current Visit: Yes Status: Acute Plan to address problem: Coronavirus PCR positive IV Decadron for now ID consult appreciated Repeat coronavirus test positive today (3) Bilateral pneumonia Current Visit: Yes Status: Acute Plan to address problem: Patient started on cefepime because of the high white count and possible pneumonia/sepsis 4) IDDM insulin dosage adjusted (5) Leukocytosis Steroid-induced?? 6)Hyponatremia etiology unclear No IV fluids CT angiogram of the chest 7)DVT prophylaxis Current Visit: Yes Status: Acute Plan to address problem: SCD to bilateral lower extremities while in bed, prophylactic anticoagulation ( 8) elevated D-dimer to rule out pulmonary embolism lCTA chest Subjective Date of service: 02/04/20 Principal diagnosis: Acute respiratory failure with hypoxia, COVID-19 positive test (U07.1, [place] Interval history: 54 YO Male with NO PMH found to have Positive coronavirus test 3 days ago presents to ED for evaluation. Patient states he has experienced shortness of breath over the past 1 week with progressively worsening symptoms over the last 3 days. Patient was seen and evaluated by his primary care physician and found to have a positive coronavirus test 3 days ago and was treated with outpatient antibiotic and steroid therapy. Patient states that he has experienced worsen ing symptoms. Patient knowledges shortness of breath, fever, malaise, decreased exercise tolerance, dry cough, loss of sense of smell and taste. EMS notified and upon arrival the patient was found to be in distress. Patient was found to have a pulse oximetry of 62% on room air. Patient placed on nonrebreather mask with improvement of pulse oximetry up to 76%. The patient was subsequently james sported to [facility] for further care and evaluation of the aforementioned symptoms. Patient seen and evaluated in the emergency department. All lab and imaging studies reviewed. Patient found to have a follow-up pulse oximetry of 60% on nonrebreather mask and was subsequently placed on high flow submental oxygen with mild improvement in symptoms. Patient underwent chest x-ray which revealed bilateral pneumonia. Patient admitted to medical floor due to increased risk of pulmonary decompensation. Patient initiated on pneumonia protocol. Patient also initiated on coronavirus protocol. Patient denies chills, chest pain, palpitations, skin rash, recent ill contacts. No prior admission for review. No medication listed at time of admission for reconciliation. Day #2 01/24/2020 Patient tested positive for coronavirus PCR Patient on high flow oxygen Continue IV Decadron ID consult to be requested Day #3 01/25/2020 Patient on high flow oxygen and IV Decadron Continue antibiotics Day #4 01/26/2020 Patient on high flow oxygen and IV Decadron Day #5 01/27/2020 Patient on high flow oxygen and IV Decadron Day #6 01/28/2020 On high flow oxygen and IV Decadron Day #7 01/29/2020 On high oxygen and IV Decadron Day #8 01/30/2020 On high flow oxygen and IV Decadron Day #9 01/31/2020 On high flow oxygen and IV Decadron Insulin dosage adjusted Day #10 02/01/2020 Patient still on high flow oxygen Not much improvement Day #11 Patient on high flow oxygen Patient on IV Decadron Day #12 Patient still on high flow oxygen No improvement We will get ID consult Patient may benefit from convalescent plasma Day #13 02/04/2020 Patient still on high flow oxygen ID consult appreciated Objective - Constitutional Vitals: Vital Signs - 12hr 02/04/20 02/04/20 02/04/20 11:26 14:45 15:53 Temperature 98.9 F 97.7 F Pulse Rate 106 H 107 H Respiratory 22 20 Rate Blood Pressure 94/67 109/78 O2 Sat by Pulse 93 93 90 Oximetry 02/04/20 02/04/20 21:30 21:42 Temperature 97.7 F Pulse Rate 115 H Respiratory 18 Rate Blood Pressure 112/76 O2 Sat by Pulse 76 L 88 Oximetry General appearance: Present: no acute distress, well-nourished - EENT Eyes: PERRL, EOM intact ENT: hearing intact, clear oral mucosa Ears: bilateral: normal - Neck Neck: supple, normal ROM - Respiratory Respiratory effort: normal Respiratory: bilateral: CTA - Breasts Breasts: normal - Cardiovascular Heart rate: 88 Rhythm: regular Heart Sounds: Present: S1 & S2. Absent: gallop, rub Extremities: pulses intact, No edema, normal color, Full ROM - Gastrointestinal General gastrointestinal: Present: soft, non-tender, non-distended, normal bowel sounds - Genitourinary Male genitourinary: normal - Integumentary Integumentary: clear, warm, dry - Musculoskeletal Musculoskeletal: 1, strength equal bilaterally - Neurologic Neurologic: moves all extremities - Psychiatric Psychiatric: memory intact, appropriate mood/affect, intact judgment & insight - Allied health notes Allied health notes reviewed: nursing, case management - Labs CBC & Chem 7: 02/04/20 15:57 02/04/20 15:57 Labs: Abnormal lab results 02/04/20 02/04/20 02/04/20 Range/Units 08:00 15:57 15:57 WBC 29.3 H (4.5-11.0) K/mm3 RBC 5.08 H (3.65-5.03) M/mm3 Hgb 15.8 H (11.8-15.2) gm/dl Hct 47.0 H (35.5-45.6) % Seg Neuts % (Manual) 94.0 H (40.0-70.0) % Lymphocytes % (Manual) 2.0 L (13.4-35.0) % Seg Neutrophils # Man 27.5 H (1.8-7.7) K/mm3 Lymphocytes # (Manual) 0.6 L (1.2-5.4) K/mm3 Monocytes # (Manual) 1.2 H (0.0-0.8) K/mm3 D-Dimer 1582.37 H (0-234) ng/mlDDU Sodium (137-145) mmol/L Chloride (98-107) mmol/L Creatinine (0.8-1.3) mg/dL POC Glucose 175 H (70-105) mg/dL Ferritin (30.0-300.0) ng/mL Alkaline Phosphatase (35-129) units/L Lactate Dehydrogenase (91-180) units/L C-Reactive Protein (0.00-1.30) mg/dL Albumin (3.9-5) g/dL Coronavirus (PCR) (Negative) SARS-CoV-2 IgG Ab (NonReactive) 02/04/20 02/04/20 02/04/20 Range/Units 15:57 15:57 15:57 WBC (4.5-11.0) K/mm3 RBC (3.65-5.03) M/mm3 Hgb (11.8-15.2) gm/dl Hct (35.5-45.6) % Seg Neuts % (Manual) (40.0-70.0) % Lymphocytes % (Manual) (13.4-35.0) % Seg Neutrophils # Man (1.8-7.7) K/mm3 Lymphocytes # (Manual) (1.2-5.4) K/mm3 Monocytes # (Manual) (0.0-0.8) K/mm3 D-Dimer (0-234) ng/mlDDU Sodium (137-145) mmol/L Chloride (98-107) mmol/L Creatinine (0.8-1.3) mg/dL POC Glucose (70-105) mg/dL Ferritin 2572.0 H (30.0-300.0) ng/mL Alkaline Phosphatase (35-129) units/L Lactate Dehydrogenase 373 H (91-180) units/L C-Reactive Protein 26.20 H (0.00-1.30) mg/dL Albumin (3.9-5) g/dL Coronavirus (PCR) (Negative) SARS-CoV-2 IgG Ab Reactive A (NonReactive) 02/04/20 02/04/20 Range/Units 15:57 Unknown WBC (4.5-11.0) K/mm3 RBC (3.65-5.03) M/mm3 Hgb (11.8-15.2) gm/dl Hct (35.5-45.6) % Seg Neuts % (Manual) (40.0-70.0) % Lymphocytes % (Manual) (13.4-35.0) % Seg Neutrophils # Man (1.8-7.7) K/mm3 Lymphocytes # (Manual) (1.2-5.4) K/mm3 Monocytes # (Manual) (0.0-0.8) K/mm3 D-Dimer (0-234) ng/mlDDU Sodium 129 L (137-145) mmol/L Chloride 93.4 L (98-107) mmol/L Creatinine 0.4 L (0.8-1.3) mg/dL POC Glucose (70-105) mg/dL Ferritin (30.0-300.0) ng/mL Alkaline Phosphatase 152 H (35-129) units/L Lactate Dehydrogenase (91-180) units/L C-Reactive Protein (0.00-1.30) mg/dL Albumin 2.2 L (3.9-5) g/dL Coronavirus (PCR) Positive A (Negative) SARS-CoV-2 IgG Ab (NonReactive)
[2020-02-05] MEDS: HYDROmorphone 1 MG/1 ML INJ IV PRN ×2 (00:10→04:25)
[2020-02-05] MEDS ORDERED: ROCURONIUM 50 MG/5 ML INJ IV ONE (01:50)
[2020-02-05] MEDS ORDERED: SUCCINYLCHOLINE CHLORIDE 200 MG/10 ML INJ MDV ONE (01:51)
[2020-02-05] MEDS ORDERED: ETOMIDATE 20 MG/10 ML INJ IV ONE (01:51)
[2020-02-05] MEDS ORDERED: PROPOFOL 500 MG/50 ML VIAL IV ONE (03:04)
[2020-02-05] MEDS ORDERED: SUCCINYLCHOLINE CHLORIDE 200 MG/10 ML INJ MDV IV ONE (03:14)
[2020-02-05] MEDS ORDERED: propofoL 200 MG/20 ML VIAL IV ONE (03:14)
[2020-02-05] MEDS ORDERED: SODIUM CHLORIDE 0.9% 1000 ML 250 ML IV ONE (03:16)
--- NOTE | 2020-02-05 03:55 | XRay Report ---
CHEST 1 VIEW INDICATION / CLINICAL INFORMATION: ett placement. COMPARISON: Chest radiograph one day prior FINDINGS: SUPPORT DEVICES: Interval placement of an endotracheal tube with tip terminating approximately 2.3 cm above the level of the betty. HEART / MEDIASTINUM: Nonenlarged. There is suggestion of a linear lucency along the right aspect of t he mediastinum, raising the possibility of pneumomediastinum. LUNGS / PLEURA: Moderate bilateral patchy airspace opacities are not significant change from prior ex amination. No pneumothorax. ADDITIONAL FINDINGS: No significant additional findings. IMPRESSION: 1. Appropriately positioned endotracheal tube. 2. Linear lucency along the right aspect of the mediastinum suggestive of developing pneumomediastinu m. 3. Moderate bilateral patchy airspace opacities are not significantly changed. Signer Name: Agustina Sams MD Signed: 02/05/2020 3:51 AM Workstation Name: [id number]
[2020-02-05] MEDS: CEFEPIME/NS 2 GM/100 ML 2 GM/100 ML BAG IV SCH ×3 (05:20→22:19)
[2020-02-05] MEDS: VANCOMYCIN/NS 1 GM/250 ML 1 GM/250 ML BAG IV SCH ×2 (05:20→18:29)
[2020-02-05] MEDS ORDERED: LIP THERAPY VASELINE TP PRN (05:33)
[2020-02-05] MEDS ORDERED: MINERAL OIL/PETROLATUM, WHITE OPHTH OINT 3.5 GM OU PRN (05:33)
[2020-02-05] MEDS ORDERED: fentaNYL 100 MCG/2 ML INJ IV PRN (05:33)
[2020-02-05] MEDS: fentaNYL DRIP Premix 2,000 MCG/100 ML BAG IV SCH ×3 (06:57→20:19)
[2020-02-05 07:12] LABS: Bilirubin,Urine NEG (Negative); Blood,Urine NEG (Negative); Color,Urine Amber (Yellow); Mucus,Urine 3+ /HPF
--- NOTE | 2020-02-05 07:35 | Progress Note ---
Assessment and Plan Cultures: Blood culture 01/23/2020 no growth today SARS CoV2 PCR positive x3 Assessment: 54 years old male with no medical history, admitted on 01/23/2020, initially tested positive for COVID-19 on 01/23/2020, admitted on secondary to few days history of worsening cough, generalized malaise, shortness of breath, dyspnea on exertion, loss of smell and taste: #Severe sepsis: Noted tachycardia and hypotension. Likely due to bilateral pneumonia. Procalcitonin elevated at 0.5. #Critical COVID pneumonia: Chest x-ray with bilateral pneumonia. Very high D- dimer. Elevated markers worsening. Completed remdesivir, Decadron and ceftriaxone azithromycin. # ? Pneumomediastinum on chest x-ray #Acute hypoxemic respiratory failure: Currently on high flow nasal cannula. Worsening now intubated on 02/02/2020 FiO2 100% Recommendations: -Pneumomediastinum per senior lead developer -Obtain blood cultures, urinalysis, sputum culture -Continue cefepime and vancomycin -day 2 of 7 -Check MRSA PCR if negative will stop vancomycin -consider chest CTA rule out PE when is stable -Continue dexamethasone 6 mg twice daily -Patient completed remdesivir 5 days -Monitor inflammatory markers - ferritin, Ddimer, CRP, LDH -Continue anticoagulation per System Protocol -Prone positioning as possible -SARS CoV-2 IgG is positive, patient is not a candidate for COVID convalescent plasma Very guarded prognosis All laboratory, cultures and imaging were reviewed. Will follow Enriqueta Gregorio MD Infectious Diseases [employer] [facility] M [phone] O [phone] Subjective Date of service: 02/05/20 Principal diagnosis: Acute respiratory failure with hypoxia, COVID-19 positive test (U07.1, [place] Interval history: Patient is now intubated no fever, FiO2 100% Objective - Exam Narrative Exam: Physical Exam: reviewed ED and hospitalist notes, limited due to conservation of PPE and decrease risk of transmission. General appearance: limited due to conservation of PPE Eyes: limited due to conservation of PPE HENT: Atraumatic; limited due to conservation of PPE Lungs: limited due to conservation of PPE CV: limited due to conservation of PPE Abdomen: limited due to conservation of PPE Extremities: limited due to conservation of PPE Skin: limited due to conservation of PPE Psych: limited due to conservation of PPE Neuro: limited due to conservation of PPE - Constitutional Vitals: Vital Signs Temp Pulse Resp BP Pulse Ox 98 F 123 H 31 H 123/81 88 02/05/20 03:13 02/05/20 04:00 02/05/20 04:55 02/05/20 03:15 02/05/20 04:00 Temperature -Last 24 Hours Temperature 98 F Temperature 97.7 F Temperature 97.7 F Temperature 98.9 F - Labs CBC & Chem 7: 02/04/20 15:57 02/04/20 15:57 Labs: Abnormal lab results 02/04/20 02/04/20 02/04/20 Range/Units 08:00 15:57 15:57 WBC 29.3 H (4.5-11.0) K/mm3 RBC 5.08 H (3.65-5.03) M/mm3 Hgb 15.8 H (11.8-15.2) gm/dl Hct 47.0 H (35.5-45.6) % Seg Neuts % (Manual) 94.0 H (40.0-70.0) % Lymphocytes % (Manual) 2.0 L (13.4-35.0) % Seg Neutrophils # Man 27.5 H (1.8-7.7) K/mm3 Lymphocytes # (Manual) 0.6 L (1.2-5.4) K/mm3 Monocytes # (Manual) 1.2 H (0.0-0.8) K/mm3 D-Dimer 1582.37 H (0-234) ng/mlDDU ABG pH (7.320-7.450) POC ABG pO2 (83-108) mmHg ABG Sodium (136.0-145.0) mmol/L ABG Potassium (3.40-4.50) mmol/L ABG Chloride (98-107) mmol/L ABG Glucose (65-95) mg/dL Sodium (137-145) mmol/L Chloride (98-107) mmol/L Creatinine (0.8-1.3) mg/dL POC Glucose 175 H (70-105) mg/dL Ferritin (30.0-300.0) ng/mL Alkaline Phosphatase (35-129) units/L Lactate Dehydrogenase (91-180) units/L C-Reactive Protein (0.00-1.30) mg/dL Albumin (3.9-5) g/dL Arterial Blood Glucose (65-95) mg/dL Ur Specific Spring (1.003-1.030) Coronavirus (PCR) (Negative) SARS-CoV-2 IgG Ab (NonReactive) 02/04/20 02/04/20 02/04/20 Range/Units 15:57 15:57 15:57 WBC (4.5-11.0) K/mm3 RBC (3.65-5.03) M/mm3 Hgb (11.8-15.2) gm/dl Hct (35.5-45.6) % Seg Neuts % (Manual) (40.0-70.0) % Lymphocytes % (Manual) (13.4-35.0) % Seg Neutrophils # Man (1.8-7.7) K/mm3 Lymphocytes # (Manual) (1.2-5.4) K/mm3 Monocytes # (Manual) (0.0-0.8) K/mm3 D-Dimer (0-234) ng/mlDDU ABG pH (7.320-7.450) POC ABG pO2 (83-108) mmHg ABG Sodium (136.0-145.0) mmol/L ABG Potassium (3.40-4.50) mmol/L ABG Chloride (98-107) mmol/L ABG Glucose (65-95) mg/dL Sodium (137-145) mmol/L Chloride (98-107) mmol/L Creatinine (0.8-1.3) mg/dL POC Glucose (70-105) mg/dL Ferritin 2572.0 H (30.0-300.0) ng/mL Alkaline Phosphatase (35-129) units/L Lactate Dehydrogenase 373 H (91-180) units/L C-Reactive Protein 26.20 H (0.00-1.30) mg/dL Albumin (3.9-5) g/dL Arterial Blood Glucose (65-95) mg/dL Ur Specific [place] (1.003-1.030) Coronavirus (PCR) (Negative) SARS-CoV-2 IgG Ab Reactive A (NonReactive) 02/04/20 02/04/20 02/04/20 Range/Units 15:57 23:10 Unknown WBC (4.5-11.0) K/mm3 RBC (3.65-5.03) M/mm3 Hgb (11.8-15.2) gm/dl Hct (35.5-45.6) % Seg Neuts % (Manual) (40.0-70.0) % Lymphocytes % (Manual) (13.4-35.0) % Seg Neutrophils # Man (1.8-7.7) K/mm3 Lymphocytes # (Manual) (1.2-5.4) K/mm3 Monocytes # (Manual) (0.0-0.8) K/mm3 D-Dimer (0-234) ng/mlDDU ABG pH 7.465 H (7.320-7.450) POC ABG pO2 42.3 L (83-108) mmHg ABG Sodium 126.6 L (136.0-145.0) mmol/L ABG Potassium (3.40-4.50) mmol/L ABG Chloride 97.0 L (98-107) mmol/L ABG Glucose (65-95) mg/dL Sodium 129 L (137-145) mmol/L Chloride 93.4 L (98-107) mmol/L Creatinine 0.4 L (0.8-1.3) mg/dL POC Glucose (70-105) mg/dL Ferritin (30.0-300.0) ng/mL Alkaline Phosphatase 152 H (35-129) units/L Lactate Dehydrogenase (91-180) units/L C-Reactive Protein (0.00-1.30) mg/dL Albumin 2.2 L (3.9-5) g/dL Arterial Blood Glucose (65-95) mg/dL Ur Specific [place] (1.003-1.030) Coronavirus (PCR) Positive A (Negative) SARS-CoV-2 IgG Ab (NonReactive) 02/05/20 02/05/20 02/05/20 Range/Units 01:00 05:05 05:33 WBC (4.5-11.0) K/mm3 RBC (3.65-5.03) M/mm3 Hgb (11.8-15.2) gm/dl Hct (35.5-45.6) % Seg Neuts % (Manual) (40.0-70.0) % Lymphocytes % (Manual) (13.4-35.0) % Seg Neutrophils # Man (1.8-7.7) K/mm3 Lymphocytes # (Manual) (1.2-5.4) K/mm3 Monocytes # (Manual) (0.0-0.8) K/mm3 D-Dimer (0-234) ng/mlDDU ABG pH (7.320-7.450) POC ABG pO2 41.7 L 46.9 L (83-108) mmHg ABG Sodium 126.6 L 128.2 L (136.0-145.0) mmol/L ABG Potassium 4.8 H 4.6 H (3.40-4.50) mmol/L ABG Chloride 97.0 L 97.0 L (98-107) mmol/L ABG Glucose 118 H (65-95) mg/dL Sodium (137-145) mmol/L Chloride (98-107) mmol/L Creatinine (0.8-1.3) mg/dL POC Glucose (70-105) mg/dL Ferritin (30.0-300.0) ng/mL Alkaline Phosphatase (35-129) units/L Lactate Dehydrogenase (91-180) units/L C-Reactive Protein (0.00-1.30) mg/dL Albumin (3.9-5) g/dL Arterial Blood Glucose 118 H (65-95) mg/dL Ur Specific [place] 1.031 H (1.003-1.030) Coronavirus (PCR) (Negative) SARS-CoV-2 IgG Ab (NonReactive)
[2020-02-05] MEDS ORDERED: MIDAZOLAM 2 MG/2 ML INJ IV PRN (09:45)
[2020-02-05] MEDS ORDERED: MIDAZOLAM 100 MG in SODIUM CHLORIDE 0.9% 80 ML IV SCH (10:00)
[2020-02-05] MEDS: PROPOFOL 500 MG/50 ML VIAL IV SCH ×4 (10:39→23:49)
[2020-02-05] MEDS: dexAMETHasone 4 MG/ML VIAL IV SCH ×2 (10:41→22:19)
[2020-02-05] MEDS: FAMOTIDINE 20 MG/2 ML INJ IV SCH ×2 (10:43→22:19)
[2020-02-05] MEDS: ENOXAPARIN 80 MG/0.8 ML INJ SUB-Q SCH ×2 (10:44→22:19)
[2020-02-05] MEDS: INSULIN NPH/REGULAR 70/30 INJ SUB-Q SCH ×2 (12:08→18:27)
--- NOTE | 2020-02-05 12:50 | Progress Note ---
Assessment and Plan Acute hypoxemic respiratory failure Severe Sepsis Bilateral pneumonia COVID-19 virus infection Acute Toxic Metabolic Encephalopathy Oropharyngeal Dysphagia Leucocytosis - plce PICC line - begin daily proning - continue Daily SAT and SBT assessment as tolerated - continue accuchecks with glycemic control per SSI (While critically ill target blood glucose of 140-180 mg/dL; avoid hypoglycemia) - sedation prn for target RASS -2 to -3 - continue to wean supplemental oxygen for target O2 sat's > 90% acutely - VAP bundle addressed - continue lung protective strategies - continue bronchodilators with pulmonary hygiene per RT - wean per pulmonary driven protocols otherwise - avoid nephrotoxins, renally dose all medications - continue to avoid benzodiazepine's, reduce the possibility of delirium - completed AB's per ID rec's - prn analgesia per CPOT score - Maintenance of sleep-wake cycle, avoid delirium - enteral nutritional support at goal rate as tolerated - G.I. & VTE prophylaxis - PT/OT/ROM exercises - continue mobility protocols for pressure ulcer prophylaxis - Monitor hemodynamics closely - continue other care per attending / other consultants - discharge planning ongoing concurrently .... Re-evaluate in am & prn CONDITION: CRITICAL PROGNOSIS: GUARDED CODE STATUS: FULL CODE The high probability of a clinically significant, sudden or life-threatening deterioration of the [respiratory, cardiovascular, GI & neurologic] system(s) required my full and direct attention, intervention and personal management. The aggregate critical care time was [31] minutes without overlap. Time includes spent on; [x] Data Review and interpretation [x] Patient assessment and monitoring of vital signs [x] Documentation [x] Medication orders and management Subjective Date of service: 02/05/20 Principal diagnosis: Acute respiratory failure with hypoxia, COVID-19 positive test (U07.1, [place] Interval history: Patient is seen today for: Seen and examined at bedside; 24hour events reviewed; nursing and respiratory care staff consulted; no adverse overnight events reported to me; resting in bed; decompensated on medical floor and now intubated; remains hypoxemic despite peep opf 20 & 100% FiO2; No emesis or overt aspiration; Objective Vital Signs - 12hr 02/05/20 02/05/20 02/05/20 02:06 02:09 02:30 Temperature Pulse Rate 104 H Pulse Rate [ From Monitor] Pulse Rate [ Right Posterior Tibial] Respiratory 44 H Rate Blood Pressure O2 Sat by Pulse 85 85 66 L Oximetry 02/05/20 02/05/20 02/05/20 03:00 03:13 03:15 Temperature 98 F Pulse Rate 104 H 130 H Pulse Rate [ From Monitor] Pulse Rate [ Right Posterior Tibial] Respiratory 37 H Rate Blood Pressure 115/74 123/81 O2 Sat by Pulse 85 92 Oximetry 02/05/20 02/05/20 02/05/20 04:00 04:25 04:55 Temperature Pulse Rate Pulse Rate [ 123 H From Monitor] Pulse Rate [ 123 H Right Posterior Tibial] Respiratory 34 H 31 H 31 H Rate Blood Pressure O2 Sat by Pulse 88 Oximetry 02/05/20 02/05/20 02/05/20 07:00 07:30 07:37 Temperature 98.0 F Pulse Rate 105 H 100 H Pulse Rate [ From Monitor] Pulse Rate [ Right Posterior Tibial] Respiratory 19 4 L Rate Blood Pressure 102/64 94/64 O2 Sat by Pulse 88 87 Oximetry 02/05/20 02/05/20 02/05/20 08:00 09:00 09:11 Temperature Pulse Rate 102 H 115 H Pulse Rate [ 107 H From Monitor] Pulse Rate [ 107 H Right Posterior Tibial] Respiratory 25 H 38 H 34 H Rate Blood Pressure 95/68 119/87 O2 Sat by Pulse 87 77 L 88 Oximetry 02/05/20 02/05/20 02/05/20 09:56 10:06 12:33 Temperature 99.1 F Pulse Rate 112 H 121 H Pulse Rate [ From Monitor] Pulse Rate [ Right Posterior Tibial] Respiratory 5 L Rate Blood Pressure 150/86 105/67 O2 Sat by Pulse 83 L 83 L Oximetry Constitutional: alert, appears uncomfortable, other (Mild respiratory distress. On 100% FIO2 and on vapotherm.) Eyes: non-icteric ENT: oropharynx moist Neck: supple, no JVD Effort: mildly labored Ascultation: Bilateral: rhonchi Cardiovascular: other (Tachycardia.) Gastrointestinal: normoactive bowel sounds, soft, non-tender Integumentary: normal Extremities: no cyanosis, no edema Neurologic: non-focal exam, pupils equal and round, CN II-XII normal Psychiatric: depressed CBC and BMP: 02/04/20 15:57 02/04/20 15:57 ABG, PT/INR, D-dimer: ABG ABG pH 7.384 (7.320-7.450) 02/05/20 05:05 POC ABG pCO2 38.1 mmHg (32.0-48.0) 02/05/20 05:05 ABG pCO2 27.5 mm Hg 01/23/20 21:55 POC ABG pO2 46.9 mmHg (83-108) L 02/05/20 05:05 ABG pO2 63.2 mm Hg (80.0-90.0) L 01/23/20 21:55 POC ABG HCO3 22.2 02/05/20 05:05 ABG O2 Saturation 94.9 % (95.0-99.0) L 01/23/20 21:55 PT/INR, D-dimer PT 14.6 Sec. (12.2-14.9) 01/23/20 13:52 INR 1.15 (0.87-1.13) H 01/23/20 13:52 D-Dimer 1582.37 ng/mlDDU (0-234) H 02/04/20 15:57 Abnormal lab findings: Abnormal Labs 01/23/20 01/23/20 01/23/20 08:20 13:52 13:52 WBC 14.5 H RBC Hgb 15.8 H Hct MCHC 35 H Seg Neuts % (Manual) 89.0 H Lymphocytes % (Manual) 4.0 L Nucleated RBC % 1.0 H Seg Neutrophils # Man 12.9 H Lymphocytes # (Manual) 0.6 L Monocytes # (Manual) INR 1.15 H APTT 23.7 L D-Dimer > 76404 H ABG pH POC ABG pO2 ABG pO2 ABG HCO3 ABG O2 Saturation ABG Base Excess ABG Sodium ABG Potassium ABG Chloride ABG Glucose Oxyhemoglobin Sodium Chloride Carbon Dioxide BUN Creatinine Glucose POC Glucose Lactic Acid Ferritin Alkaline Phosphatase Lactate Dehydrogenase C-Reactive Protein Total Protein Albumin Arterial Blood Glucose Ur Specific [place] Coronavirus (PCR) Positive A SARS-CoV-2 IgG Ab 01/23/20 01/23/20 01/23/20 13:52 13:52 13:52 WBC RBC Hgb Hct MCHC Seg Neuts % (Manual) Lymphocytes % (Manual) Nucleated RBC % Seg Neutrophils # Man Lymphocytes # (Manual) Monocytes # (Manual) INR APTT D-Dimer ABG pH POC ABG pO2 ABG pO2 ABG HCO3 ABG O2 Saturation ABG Base Excess ABG Sodium ABG Potassium ABG Chloride ABG Glucose Oxyhemoglobin Sodium 131 L Chloride 92.3 L Carbon Dioxide 21 L BUN 23 H Creatinine 0.6 L Glucose 394 H 393 H POC Glucose Lactic Acid 3.50 H* Ferritin Alkaline Phosphatase 216 H Lactate Dehydrogenase 443 H C-Reactive Protein 9.50 H Total Protein Albumin 3.2 L Arterial Blood Glucose Ur Specific [place] Coronavirus (PCR) SARS-CoV-2 IgG Ab 01/23/20 01/23/20 01/24/20 13:52 21:55 15:41 WBC RBC Hgb Hct MCHC Seg Neuts % (Manual) Lymphocytes % (Manual) Nucleated RBC % Seg Neutrophils # Man Lymphocytes # (Manual) Monocytes # (Manual) INR APTT D-Dimer ABG pH POC ABG pO2 ABG pO2 63.2 L ABG HCO3 18.1 L ABG O2 Saturation 94.9 L ABG Base Excess -4.5 L ABG Sodium ABG Potassium ABG Chloride ABG Glucose Oxyhemoglobin 93.4 L Sodium Chloride Carbon Dioxide BUN Creatinine Glucose POC Glucose 322 H Lactic Acid Ferritin 2821.0 H Alkaline Phosphatase Lactate Dehydrogenase C-Reactive Protein Total Protein Albumin Arterial Blood Glucose Ur Specific [place] Coronavirus (PCR) SARS-CoV-2 IgG Ab 01/24/20 01/25/20 01/25/20 22:48 08:15 11:45 WBC RBC Hgb Hct MCHC Seg Neuts % (Manual) Lymphocytes % (Manual) Nucleated RBC % Seg Neutrophils # Man Lymphocytes # (Manual) Monocytes # (Manual) INR APTT D-Dimer ABG pH POC ABG pO2 ABG pO2 ABG HCO3 ABG O2 Saturation ABG Base Excess ABG Sodium ABG Potassium ABG Chloride ABG Glucose Oxyhemoglobin Sodium Chloride Carbon Dioxide BUN Creatinine Glucose POC Glucose 374 H 348 H 399 H Lactic Acid Ferritin Alkaline Phosphatase Lactate Dehydrogenase C-Reactive Protein Total Protein Albumin Arterial Blood Glucose Ur Specific [place] Coronavirus (PCR) SARS-CoV-2 IgG Ab 01/25/20 01/25/20 01/26/20 16:38 20:23 08:11 WBC RBC Hgb Hct MCHC Seg Neuts % (Manual) Lymphocytes % (Manual) Nucleated RBC % Seg Neutrophils # Man Lymphocytes # (Manual) Monocytes # (Manual) INR APTT D-Dimer ABG pH POC ABG pO2 ABG pO2 ABG HCO3 ABG O2 Saturation ABG Base Excess ABG Sodium ABG Potassium ABG Chloride ABG Glucose Oxyhemoglobin Sodium Chloride Carbon Dioxide BUN Creatinine Glucose POC Glucose 376 H 349 H 299 H Lactic Acid Ferritin Alkaline Phosphatase Lactate Dehydrogenase C-Reactive Protein Total Protein Albumin Arterial Blood Glucose Ur Specific [place] Coronavirus (PCR) SARS-CoV-2 IgG Ab 01/26/20 01/26/20 01/26/20 10:01 11:50 17:43 WBC RBC Hgb Hct MCHC Seg Neuts % (Manual) Lymphocytes % (Manual) Nucleated RBC % Seg Neutrophils # Man Lymphocytes # (Manual) Monocytes # (Manual) INR APTT D-Dimer ABG pH POC ABG pO2 ABG pO2 ABG HCO3 ABG O2 Saturation ABG Base Excess ABG Sodium ABG Potassium ABG Chloride ABG Glucose Oxyhemoglobin Sodium Chloride Carbon Dioxide BUN Creatinine Glucose POC Glucose 361 H 305 H Lactic Acid Ferritin Alkaline Phosphatase Lactate Dehydrogenase C-Reactive Protein Total Protein Albumin Arterial Blood Glucose Ur Specific [place] Coronavirus (PCR) Positive A SARS-CoV-2 IgG Ab 01/26/20 01/27/20 01/27/20 23:11 07:47 12:18 WBC RBC Hgb Hct MCHC Seg Neuts % (Manual) Lymphocytes % (Manual) Nucleated RBC % Seg Neutrophils # Man Lymphocytes # (Manual) Monocytes # (Manual) INR APTT D-Dimer ABG pH POC ABG pO2 ABG pO2 ABG HCO3 ABG O2 Saturation ABG Base Excess ABG Sodium ABG Potassium ABG Chloride ABG Glucose Oxyhemoglobin Sodium Chloride Carbon Dioxide BUN Creatinine Glucose POC Glucose 271 H 227 H 289 H Lactic Acid Ferritin Alkaline Phosphatase Lactate Dehydrogenase C-Reactive Protein Total Protein Albumin Arterial Blood Glucose Ur Specific [place] Coronavirus (PCR) SARS-CoV-2 IgG Ab 01/27/20 01/27/20 01/27/20 13:25 13:25 17:31 WBC RBC Hgb Hct MCHC Seg Neuts % (Manual) Lymphocytes % (Manual) Nucleated RBC % Seg Neutrophils # Man Lymphocytes # (Manual) Monocytes # (Manual) INR APTT D-Dimer > 50660 H ABG pH POC ABG pO2 ABG pO2 ABG HCO3 ABG O2 Saturation ABG Base Excess ABG Sodium ABG Potassium ABG Chloride ABG Glucose Oxyhemoglobin Sodium 135 L Chloride Carbon Dioxide BUN 27 H Creatinine 0.5 L Glucose 282 H POC Glucose 255 H Lactic Acid Ferritin Alkaline Phosphatase 161 H Lactate Dehydrogenase C-Reactive Protein Total Protein 5.8 L D Albumin 2.7 L Arterial Blood Glucose Ur Specific [place] Coronavirus (PCR) SARS-CoV-2 IgG Ab 01/27/20 01/28/20 01/28/20 21:30 08:00 12:19 WBC RBC Hgb Hct MCHC Seg Neuts % (Manual) Lymphocytes % (Manual) Nucleated RBC % Seg Neutrophils # Man Lymphocytes # (Manual) Monocytes # (Manual) INR APTT D-Dimer ABG pH POC ABG pO2 ABG pO2 ABG HCO3 ABG O2 Saturation ABG Base Excess ABG Sodium ABG Potassium ABG Chloride ABG Glucose Oxyhemoglobin Sodium Chloride Carbon Dioxide BUN Creatinine Glucose POC Glucose 256 H 178 H 247 H Lactic Acid Ferritin Alkaline Phosphatase Lactate Dehydrogenase C-Reactive Protein Total Protein Albumin Arterial Blood Glucose Ur Specific [place] Coronavirus (PCR) SARS-CoV-2 IgG Ab 01/28/20 01/28/20 01/29/20 18:03 21:58 12:21 WBC RBC Hgb Hct MCHC Seg Neuts % (Manual) Lymphocytes % (Manual) Nucleated RBC % Seg Neutrophils # Man Lymphocytes # (Manual) Monocytes # (Manual) INR APTT D-Dimer ABG pH POC ABG pO2 ABG pO2 ABG HCO3 ABG O2 Saturation ABG Base Excess ABG Sodium ABG Potassium ABG Chloride ABG Glucose Oxyhemoglobin Sodium Chloride Carbon Dioxide BUN Creatinine Glucose POC Glucose 228 H 204 H 110 H Lactic Acid Ferritin Alkaline Phosphatase Lactate Dehydrogenase C-Reactive Protein Total Protein Albumin Arterial Blood Glucose Ur Specific [place] Coronavirus (PCR) SARS-CoV-2 IgG Ab 01/29/20 01/29/20 01/30/20 16:57 23:16 08:36 WBC RBC Hgb Hct MCHC Seg Neuts % (Manual) Lymphocytes % (Manual) Nucleated RBC % Seg Neutrophils # Man Lymphocytes # (Manual) Monocytes # (Manual) INR APTT D-Dimer ABG pH POC ABG pO2 ABG pO2 ABG HCO3 ABG O2 Saturation ABG Base Excess ABG Sodium ABG Potassium ABG Chloride ABG Glucose Oxyhemoglobin Sodium Chloride Carbon Dioxide BUN Creatinine Glucose POC Glucose 146 H 238 H 180 H Lactic Acid Ferritin Alkaline Phosphatase Lactate Dehydrogenase C-Reactive Protein Total Protein Albumin Arterial Blood Glucose Ur Specific [place] Coronavirus (PCR) SARS-CoV-2 IgG Ab 01/30/20 01/30/20 01/30/20 10:50 10:51 10:51 WBC RBC Hgb Hct MCHC Seg Neuts % (Manual) Lymphocytes % (Manual) Nucleated RBC % Seg Neutrophils # Man Lymphocytes # (Manual) Monocytes # (Manual) INR APTT D-Dimer 4460.42 H ABG pH POC ABG pO2 ABG pO2 ABG HCO3 ABG O2 Saturation ABG Base Excess ABG Sodium ABG Potassium ABG Chloride ABG Glucose Oxyhemoglobin Sodium Chloride Carbon Dioxide BUN Creatinine Glucose POC Glucose Lactic Acid Ferritin 1652.0 H Alkaline Phosphatase Lactate Dehydrogenase 341 H C-Reactive Protein 19.70 H Total Protein Albumin Arterial Blood Glucose Ur Specific [place] Coronavirus (PCR) SARS-CoV-2 IgG Ab 01/30/20 01/30/20 01/30/20 10:51 13:08 23:30 WBC RBC Hgb Hct MCHC Seg Neuts % (Manual) Lymphocytes % (Manual) Nucleated RBC % Seg Neutrophils # Man Lymphocytes # (Manual) Monocytes # (Manual) INR APTT D-Dimer ABG pH POC ABG pO2 ABG pO2 ABG HCO3 ABG O2 Saturation ABG Base Excess ABG Sodium ABG Potassium ABG Chloride ABG Glucose Oxyhemoglobin Sodium 129 L Chloride 94.6 L Carbon Dioxide BUN Creatinine 0.5 L Glucose 172 H POC Glucose 155 H 222 H Lactic Acid Ferritin Alkaline Phosphatase Lactate Dehydrogenase C-Reactive Protein Total Protein Albumin Arterial Blood Glucose Ur Specific [place] Coronavirus (PCR) SARS-CoV-2 IgG Ab 01/31/20 01/31/20 01/31/20 07:39 11:45 15:50 WBC RBC Hgb Hct MCHC Seg Neuts % (Manual) Lymphocytes % (Manual) Nucleated RBC % Seg Neutrophils # Man Lymphocytes # (Manual) Monocytes # (Manual) INR APTT D-Dimer ABG pH POC ABG pO2 ABG pO2 ABG HCO3 ABG O2 Saturation ABG Base Excess ABG Sodium ABG Potassium ABG Chloride ABG Glucose Oxyhemoglobin Sodium Chloride Carbon Dioxide BUN Creatinine Glucose POC Glucose 171 H 141 H 154 H Lactic Acid Ferritin Alkaline Phosphatase Lactate Dehydrogenase C-Reactive Protein Total Protein Albumin Arterial Blood Glucose Ur Specific [place] Coronavirus (PCR) SARS-CoV-2 IgG Ab 01/31/20 02/01/20 02/01/20 21:33 12:03 16:45 WBC RBC Hgb Hct MCHC Seg Neuts % (Manual) Lymphocytes % (Manual) Nucleated RBC % Seg Neutrophils # Man Lymphocytes # (Manual) Monocytes # (Manual) INR APTT D-Dimer ABG pH POC ABG pO2 ABG pO2 ABG HCO3 ABG O2 Saturation ABG Base Excess ABG Sodium ABG Potassium ABG Chloride ABG Glucose Oxyhemoglobin Sodium Chloride Carbon Dioxide BUN Creatinine Glucose POC Glucose 223 H 178 H 173 H Lactic Acid Ferritin Alkaline Phosphatase Lactate Dehydrogenase C-Reactive Protein Total Protein Albumin Arterial Blood Glucose Ur Specific [place] Coronavirus (PCR) SARS-CoV-2 IgG Ab 02/01/20 02/02/20 02/02/20 21:34 11:32 16:19 WBC RBC Hgb Hct MCHC Seg Neuts % (Manual) Lymphocytes % (Manual) Nucleated RBC % Seg Neutrophils # Man Lymphocytes # (Manual) Monocytes # (Manual) INR APTT D-Dimer ABG pH POC ABG pO2 ABG pO2 ABG HCO3 ABG O2 Saturation ABG Base Excess ABG Sodium ABG Potassium ABG Chloride ABG Glucose Oxyhemoglobin Sodium Chloride Carbon Dioxide BUN Creatinine Glucose POC Glucose 138 H 201 H 260 H Lactic Acid Ferritin Alkaline Phosphatase Lactate Dehydrogenase C-Reactive Protein Total Protein Albumin Arterial Blood Glucose Ur Specific [place] Coronavirus (PCR) SARS-CoV-2 IgG Ab 02/02/20 02/03/20 02/03/20 22:40 07:50 11:09 WBC RBC Hgb Hct MCHC Seg Neuts % (Manual) Lymphocytes % (Manual) Nucleated RBC % Seg Neutrophils # Man Lymphocytes # (Manual) Monocytes # (Manual) INR APTT D-Dimer ABG pH POC ABG pO2 ABG pO2 ABG HCO3 ABG O2 Saturation ABG Base Excess ABG Sodium ABG Potassium ABG Chloride ABG Glucose Oxyhemoglobin Sodium Chloride Carbon Dioxide BUN Creatinine Glucose POC Glucose 294 H 247 H 276 H Lactic Acid Ferritin Alkaline Phosphatase Lactate Dehydrogenase C-Reactive Protein Total Protein Albumin Arterial Blood Glucose Ur Specific [place] Coronavirus (PCR) SARS-CoV-2 IgG Ab 02/03/20 02/03/20 02/03/20 15:55 19:28 19:28 WBC RBC Hgb Hct MCHC Seg Neuts % (Manual) Lymphocytes % (Manual) Nucleated RBC % Seg Neutrophils # Man Lymphocytes # (Manual) Monocytes # (Manual) INR APTT D-Dimer 1374.52 H ABG pH POC ABG pO2 ABG pO2 ABG HCO3 ABG O2 Saturation ABG Base Excess ABG Sodium ABG Potassium ABG Chloride ABG Glucose Oxyhemoglobin Sodium Chloride Carbon Dioxide BUN Creatinine Glucose POC Glucose 254 H Lactic Acid Ferritin 2169.0 H Alkaline Phosphatase Lactate Dehydrogenase C-Reactive Protein Total Protein Albumin Arterial Blood Glucose Ur Specific [place] Coronavirus (PCR) SARS-CoV-2 IgG Ab 02/03/20 02/03/20 02/04/20 19:28 21:08 08:00 WBC RBC Hgb Hct MCHC Seg Neuts % (Manual) Lymphocytes % (Manual) Nucleated RBC % Seg Neutrophils # Man Lymphocytes # (Manual) Monocytes # (Manual) INR APTT D-Dimer ABG pH POC ABG pO2 ABG pO2 ABG HCO3 ABG O2 Saturation ABG Base Excess ABG Sodium ABG Potassium ABG Chloride ABG Glucose Oxyhemoglobin Sodium Chloride Carbon Dioxide BUN Creatinine Glucose POC Glucose 206 H 175 H Lactic Acid Ferritin Alkaline Phosphatase Lactate Dehydrogenase 433 H C-Reactive Protein 16.90 H Total Protein Albumin Arterial Blood Glucose Ur Specific [place] Coronavirus (PCR) SARS-CoV-2 IgG Ab 02/04/20 02/04/20 02/04/20 15:57 15:57 15:57 WBC 29.3 H RBC 5.08 H Hgb 15.8 H Hct 47.0 H MCHC Seg Neuts % (Manual) 94.0 H Lymphocytes % (Manual) 2.0 L Nucleated RBC % Seg Neutrophils # Man 27.5 H Lymphocytes # (Manual) 0.6 L Monocytes # (Manual) 1.2 H INR APTT D-Dimer 1582.37 H ABG pH POC ABG pO2 ABG pO2 ABG HCO3 ABG O2 Saturation ABG Base Excess ABG Sodium ABG Potassium ABG Chloride ABG Glucose Oxyhemoglobin Sodium Chloride Carbon Dioxide BUN Creatinine Glucose POC Glucose Lactic Acid Ferritin 2572.0 H Alkaline Phosphatase Lactate Dehydrogenase C-Reactive Protein Total Protein Albumin Arterial Blood Glucose Ur Specific [place] Coronavirus (PCR) SARS-CoV-2 IgG Ab 02/04/20 02/04/20 02/04/20 15:57 15:57 15:57 WBC RBC Hgb Hct MCHC Seg Neuts % (Manual) Lymphocytes % (Manual) Nucleated RBC % Seg Neutrophils # Man Lymphocytes # (Manual) Monocytes # (Manual) INR APTT D-Dimer ABG pH POC ABG pO2 ABG pO2 ABG HCO3 ABG O2 Saturation ABG Base Excess ABG Sodium ABG Potassium ABG Chloride ABG Glucose Oxyhemoglobin Sodium 129 L Chloride 93.4 L Carbon Dioxide BUN Creatinine 0.4 L Glucose POC Glucose Lactic Acid Ferritin Alkaline Phosphatase 152 H Lactate Dehydrogenase 373 H C-Reactive Protein 26.20 H Total Protein Albumin 2.2 L Arterial Blood Glucose Ur Specific [place] Coronavirus (PCR) SARS-CoV-2 IgG Ab Reactive A 02/04/20 02/04/20 02/05/20 23:10 Unknown 01:00 WBC RBC Hgb Hct MCHC Seg Neuts % (Manual) Lymphocytes % (Manual) Nucleated RBC % Seg Neutrophils # Man Lymphocytes # (Manual) Monocytes # (Manual) INR APTT D-Dimer ABG pH 7.465 H POC ABG pO2 42.3 L 41.7 L ABG pO2 ABG HCO3 ABG O2 Saturation ABG Base Excess ABG Sodium 126.6 L 126.6 L ABG Potassium 4.8 H ABG Chloride 97.0 L 97.0 L ABG Glucose Oxyhemoglobin Sodium Chloride Carbon Dioxide BUN Creatinine Glucose POC Glucose Lactic Acid Ferritin Alkaline Phosphatase Lactate Dehydrogenase C-Reactive Protein Total Protein Albumin Arterial Blood Glucose Ur Specific [place] Coronavirus (PCR) Positive A SARS-CoV-2 IgG Ab 02/05/20 02/05/20 02/05/20 05:05 05:33 09:50 WBC RBC Hgb Hct MCHC Seg Neuts % (Manual) Lymphocytes % (Manual) Nucleated RBC % Seg Neutrophils # Man Lymphocytes # (Manual) Monocytes # (Manual) INR APTT D-Dimer ABG pH POC ABG pO2 46.9 L ABG pO2 ABG HCO3 ABG O2 Saturation ABG Base Excess ABG Sodium 128.2 L ABG Potassium 4.6 H ABG Chloride 97.0 L ABG Glucose 118 H Oxyhemoglobin Sodium Chloride Carbon Dioxide BUN Creatinine Glucose POC Glucose 113 H Lactic Acid Ferritin Alkaline Phosphatase Lactate Dehydrogenase C-Reactive Protein Total Protein Albumin Arterial Blood Glucose 118 H Ur Specific [place] 1.031 H Coronavirus (PCR) SARS-CoV-2 IgG Ab
[2020-02-05] MEDS: INSULIN LISPRO 100 UNIT/ML VIAL 3 mL SUB-Q SCH ×2 (13:17→18:28)
--- NOTE | 2020-02-05 15:58 | Progress Note ---
Assessment and Plan Assessment and plan: Acute hypoxemic respiratory failure\ Intubated 02/01 Suspected 2019 novel coronavirus infection Coronavirus PCR positive IV Decadron for now ID consult appreciated Repeat coronavirus test positive today Bilateral pneumonia Patient started on cefepime because of the high white count and possible pneumonia/sepsis IDDM insulin dosage adjusted Leukocytosis Steroid-induced?? Hyponatremia etiology unclear No IV fluids CT angiogram of the chest DVT prophylaxis SCD to bilateral lower extremities while in bed, prophylactic anticoagulation elevated D-dimer to rule out pulmonary embolism with CTA chest when stable The high probability of a clinically significant, sudden or life threatening deterioration of the [respiratory] system(s) required my full and direct attention, intervention and personal management. The aggregate critical care time was [33] minutes. This time is in addition to time spent performing r eported procedures but includes the following: [x] Data Review and interpretation [x] Patient assessment and monitoring of vital signs [x] Documentation [x] Medication orders and management History Interval history: No new issues Hospitalist Physical - Constitutional Vitals: Temp Pulse Resp BP Pulse Ox 98.9 F 121 H 5 L 105/67 83 L 02/05/20 12:00 02/05/20 12:33 02/05/20 10:06 02/05/20 12:33 02/05/20 12:33 General appearance: Present: no acute distress, well-nourished - EENT Eyes: Present: PERRL, EOM intact ENT: hearing intact, clear oral mucosa, dentition normal - Neck Neck: Present: supple, normal ROM - Respiratory Respiratory effort: normal Respiratory: bilateral: CTA - Cardiovascular Rhythm: regular Heart Sounds: Present: S1 & S2. Absent: gallop, rub - Extremities Extremities: no ischemia, No edema, Full ROM - Abdominal General gastrointestinal: soft, non-tender, non-distended, normal bowel sounds - Integumentary Integumentary: Present: clear, warm, dry - Neurologic Neurologic: CNII-XII intact, moves all extremities Results - Labs CBC & Chem 7: 02/04/20 15:57 02/04/20 15:57 Labs: Laboratory Last Values WBC 29.3 K/mm3 (4.5-11.0) H 02/04/20 15:57 RBC 5.08 M/mm3 (3.65-5.03) H 02/04/20 15:57 Hgb 15.8 gm/dl (11.8-15.2) H 02/04/20 15:57 Hct 47.0 % (35.5-45.6) H 02/04/20 15:57 MCV 93 fl (84-94) 02/04/20 15:57 MCH 31 pg (28-32) 02/04/20 15:57 MCHC 34 % (32-34) 02/04/20 15:57 RDW 14.1 % (13.2-15.2) 02/04/20 15:57 Plt Count 228 K/mm3 (140-440) 02/04/20 15:57 Add Manual Diff Complete 02/04/20 15:57 Total Counted 100 02/04/20 15:57 Seg Neuts % (Manual) 94.0 % (40.0-70.0) H 02/04/20 15:57 Band Neutrophils % 0 % 02/04/20 15:57 Lymphocytes % (Manual) 2.0 % (13.4-35.0) L 02/04/20 15:57 Reactive Lymphs % (Man) 0 % 02/04/20 15:57 Monocytes % (Manual) 4.0 % (0.0-7.3) 02/04/20 15:57 Eosinophils % (Manual) 0 % (0.0-4.3) 02/04/20 15:57 Basophils % (Manual) 0 % (0.0-1.8) 02/04/20 15:57 Metamyelocytes % 0 % 02/04/20 15:57 Myelocytes % 0 % 02/04/20 15:57 Promyelocytes % 0 % 02/04/20 15:57 Blast Cells % 0 % 02/04/20 15:57 Nucleated RBC % Not Reportable 02/04/20 15:57 Seg Neutrophils # Man 27.5 K/mm3 (1.8-7.7) H 02/04/20 15:57 Band Neutrophils # 0.0 K/mm3 02/04/20 15:57 Lymphocytes # (Manual) 0.6 K/mm3 (1.2-5.4) L 02/04/20 15:57 Abs React Lymphs (Man) 0.0 K/mm3 02/04/20 15:57 Monocytes # (Manual) 1.2 K/mm3 (0.0-0.8) H 02/04/20 15:57 Eosinophils # (Manual) 0.0 K/mm3 (0.0-0.4) 02/04/20 15:57 Basophils # (Manual) 0.0 K/mm3 (0.0-0.1) 02/04/20 15:57 Metamyelocytes # 0.0 K/mm3 02/04/20 15:57 Myelocytes # 0.0 K/mm3 02/04/20 15:57 Promyelocytes # 0.0 K/mm3 02/04/20 15:57 Blast Cells # 0.0 K/mm3 02/04/20 15:57 WBC Morphology Not Reportable 02/04/20 15:57 Hypersegmented Neuts Not Reportable 02/04/20 15:57 Hyposegmented Neuts Not Reportable 02/04/20 15:57 Hypogranular Neuts Not Reportable 02/04/20 15:57 Smudge Cells Not Reportable 02/04/20 15:57 Toxic Granulation Not Reportable 02/04/20 15:57 Toxic Vacuolation Not Reportable 02/04/20 15:57 Dohle Bodies Not Reportable 02/04/20 15:57 Pelger-Huet Anomaly Not Reportable 02/04/20 15:57 Raffaele Rods Not Reportable 02/04/20 15:57 Platelet Estimate Not Reportable 02/04/20 15:57 Clumped Platelets Not Reportable 02/04/20 15:57 Plt Clumps, EDTA Not Reportable 02/04/20 15:57 Large Platelets Not Reportable 02/04/20 15:57 Giant Platelets Not Reportable 02/04/20 15:57 Platelet Satelliting Not Reportable 02/04/20 15:57 Plt Morphology Comment Not Reportable 02/04/20 15:57 RBC Morphology Normal 02/04/20 15:57 Dimorphic RBCs Not Reportable 02/04/20 15:57 Polychromasia Not Reportable 02/04/20 15:57 Hypochromasia Not Reportable 02/04/20 15:57 Poikilocytosis Not Reportable 02/04/20 15:57 Anisocytosis Not Reportable 02/04/20 15:57 Microcytosis Not Reportable 02/04/20 15:57 Macrocytosis Not Reportable 02/04/20 15:57 Spherocytes Not Reportable 02/04/20 15:57 Pappenheimer Bodies Not Reportable 02/04/20 15:57 Sickle Cells Not Reportable 02/04/20 15:57 Target Cells Not Reportable 02/04/20 15:57 Tear Drop Cells Not Reportable 02/04/20 15:57 Ovalocytes Not Reportable 02/04/20 15:57 Helmet Cells Not Reportable 02/04/20 15:57 Walker-Blossom Bodies Not Reportable 02/04/20 15:57 Udall Rings Not Reportable 02/04/20 15:57 Jing Cells Not Reportable 02/04/20 15:57 Bite Cells Not Reportable 02/04/20 15:57 Crenated Cell Not Reportable 02/04/20 15:57 Elliptocytes Not Reportable 02/04/20 15:57 Acanthocytes (Spur) Not Reportable 02/04/20 15:57 Rouleaux Not Reportable 02/04/20 15:57 Hemoglobin C Crystals Not Reportable 02/04/20 15:57 Schistocytes Not Reportable 02/04/20 15:57 Malaria parasites Not Reportable 02/04/20 15:57 Emre Bodies Not Reportable 02/04/20 15:57 Hem Pathologist Commnt No 02/04/20 15:57 PT 14.6 Sec. (12.2-14.9) 01/23/20 13:52 INR 1.15 (0.87-1.13) H 01/23/20 13:52 APTT 23.7 Sec. (24.2-36.6) L 01/23/20 13:52 D-Dimer 1582.37 ng/mlDDU (0-234) H 02/04/20 15:57 ABG pH 7.309 (7.320-7.450) L 02/05/20 12:27 POC ABG pCO2 45.7 mmHg (32.0-48.0) 02/05/20 12:27 ABG pCO2 27.5 mm Hg 01/23/20 21:55 POC ABG pO2 53.1 mmHg (83-108) L 02/05/20 12:27 ABG pO2 63.2 mm Hg (80.0-90.0) L 01/23/20 21:55 POC ABG HCO3 22.4 02/05/20 12:27 ABG HCO3 18.1 mmol/L (20.0-26.0) L 01/23/20 21:55 ABG O2 Saturation 94.9 % (95.0-99.0) L 01/23/20 21:55 ABG O2 Content 19.2 (0.0-44) 01/23/20 21:55 POC ABG Base Excess -4.0 02/05/20 12:27 ABG Base Excess -4.5 mmol/L (-2.0-3.0) L 01/23/20 21:55 ABG Hemoglobin 15.5 (12.0-17.5) 02/05/20 12:27 ABG Oxyhemoglobin 88.0 (94-98) L 02/05/20 12:27 ABG Carboxyhemoglobin 1.0 % (0.0-5.0) 01/23/20 21:55 ABG Methemoglobin 0.3 (0.0-1.5) 02/05/20 12:27 ABG Sodium 130.7 mmol/L (136.0-145.0) L 02/05/20 12:27 ABG Potassium 4.8 mmol/L (3.40-4.50) H 02/05/20 12:27 ABG Chloride 99.0 mmol/L (98-107) 02/05/20 12:27 ABG Glucose 137 mg/dL (65-95) H 02/05/20 12:27 Oxyhemoglobin 93.4 % (95.0-99.0) L 01/23/20 21:55 Carboxyhemoglobin 1.1 (0.5-1.5) 02/05/20 12:27 FiO2 100 02/05/20 12:27 Sodium 129 mmol/L (137-145) L 02/04/20 15:57 Potassium 4.5 mmol/L (3.6-5.0) 02/04/20 15:57 Chloride 93.4 mmol/L (98-107) L 02/04/20 15:57 Carbon Dioxide 28 mmol/L (22-30) 02/04/20 15:57 Anion Gap 12 mmol/L 02/04/20 15:57 BUN 17 mg/dL (9-20) 02/04/20 15:57 Creatinine 0.4 mg/dL (0.8-1.3) L 02/04/20 15:57 Estimated GFR > 60 ml/min 02/04/20 15:57 BUN/Creatinine Ratio 43 % 02/04/20 15:57 Glucose 95 mg/dL (75-100) 02/04/20 15:57 POC Glucose 113 mg/dL (70-105) H 02/05/20 09:50 Lactic Acid 3.50 mmol/L (0.7-2.0) H* 01/23/20 13:52 Calcium 9.1 mg/dL (8.4-10.2) 02/04/20 15:57 Ferritin 2572.0 ng/mL (30.0-300.0) H 02/04/20 15:57 Total Bilirubin 1.20 mg/dL (0.1-1.2) 02/04/20 15:57 Direct Bilirubin < 0.2 mg/dL (0-0.2) 01/27/20 13:25 Indirect Bilirubin 0.3 mg/dL 01/27/20 13:25 AST 17 units/L (5-40) 02/04/20 15:57 ALT 19 units/L (7-56) 02/04/20 15:57 Alkaline Phosphatase 152 units/L (35-129) H 02/04/20 15:57 Lactate Dehydrogenase 373 units/L (91-180) H 02/04/20 15:57 C-Reactive Protein 26.20 mg/dL (0.00-1.30) H 02/04/20 15:57 Total Protein 6.8 g/dL (6.3-8.2) 02/04/20 15:57 Albumin 2.2 g/dL (3.9-5) L 02/04/20 15:57 Albumin/Globulin Ratio 0.5 % 02/04/20 15:57 Procalcitonin 0.30 ng/mL (<0.15) 02/04/20 15:57 Arterial Blood Glucose 137 mg/dL (65-95) H 02/05/20 12:27 Arterial Blood Ionized Calcium 5.0 mg/dL (4.6-5.3) 02/05/20 12:27 Urine Color Urszula (Yellow) 02/05/20 05:33 Urine Turbidity Clear (Clear) 02/05/20 05:33 Urine pH 6.0 (5.0-7.0) 02/05/20 05:33 Ur Specific [place] 1.031 (1.003-1.030) H 02/05/20 05:33 Urine Protein 30 mg/dl mg/dL (Negative) 02/05/20 05:33 Urine Glucose (UA) Neg mg/dL (Negative) 02/05/20 05:33 Urine Ketones Tr mg/dL (Negative) 02/05/20 05:33 Urine Blood Neg (Negative) 02/05/20 05:33 Urine Nitrite Neg (Negative) 02/05/20 05:33 Urine Bilirubin Neg (Negative) 02/05/20 05:33 Urine Urobilinogen 4.0 mg/dL (<2.0) 02/05/20 05:33 Ur Leukocyte Esterase Neg (Negative) 02/05/20 05:33 Urine WBC (Auto) 1.0 /HPF (0.0-6.0) 02/05/20 05:33 Urine RBC (Auto) 1.0 /HPF (0.0-6.0) 02/05/20 05:33 U Epithel Cells (Auto) < 1.0 /HPF (0-13.0) 02/05/20 05:33 Urine Mucus 3+ /HPF 02/05/20 05:33 Coronavirus (PCR) Positive (Negative) A 02/04/20 Unknown SARS-CoV-2 IgG Ab Reactive (NonReactive) A 02/04/20 15:57 Microbiology: Microbiology 02/04/20 15:57 Peripheral/Venous Blood Culture - Preliminary Culture in Progress 02/04/20 15:57 Peripheral/Venous Blood Culture - Preliminary Culture in Progress Slater/IV: Voiding Method Condom Catheter IV Catheter Type [Right INT / Saline Lock Antecubital] IV Catheter Type [Right Hand] Peripheral IV IV Catheter Type [Left INT / Saline Lock Antecubital] Active Medications - Current Medications Current Medications: Generic Name Dose Route Start Last Admin Trade Name Freq PRN Reason Stop Dose Admin Dexamethasone 6 mg 02/04/20 16:00 02/05/20 10:41 Decadron IV 02/14/20 15:59 6 mg Q12HR BRUNILDA Administration Enoxaparin Sodium 80 mg 02/05/20 10:00 02/05/20 10:44 Enoxaparin SUB-Q 80 mg Q12HR BRUNILDA Administration Famotidine 20 mg 02/05/20 10:00 02/05/20 10:43 Pepcid IV 20 mg BID BRUNILDA Administration Fentanyl 50 mcg 02/05/20 05:33 Sublimaze IV Q10MIN PRN ANALGESIA Hydromorphone HCl 0.5 mg 01/29/20 16:00 02/05/20 04:25 Dilaudid IV 0.5 mg Q3H PRN Administration Pain , Severe (7-10) Hydrophilic Ointment 1 applic 02/05/20 05:33 Vaseline Lip Therapy TP Q2HR PRN Dry Lips Cefepime HCl 2 gm in 100 mls @ 200 mls/hr 02/04/20 16:00 02/05/20 13:13 Cefepime/Ns 2 Gm/100 Ml IV 02/11/20 06:29 200 mls/hr Q8HR BRUNILDA Administration Protocol Vancomycin HCl 1 gm in 250 mls @ 166.667 mls/hr 02/05/20 06:00 02/05/20 05:20 Vancomycin/Ns 1 Gm/250 Ml IV 166.667 mls/hr Q12H BRUNILDA Administration Fentanyl Citrate 2,000 mcg in 100 mls @ 3.7 mls/hr 02/05/20 06:00 02/05/20 15:20 Fentanyl Drip Premix IV 4 mcg/kg/hr TITR BRUNILDA 14.8 mls/hr Administration Protocol 1 MCG/KG/HR Midazolam HCl 100 mg/ Sodium 100 mls @ 2 mls/hr 02/05/20 10:00 02/05/20 12:57 Chloride IV 5 mg/hr TITR BRUNILDA 5 mls/hr Titration Protocol 2 MG/HR Propofol 500 mg in 50 mls @ 2.19 mls/hr 02/05/20 10:00 02/05/20 13:13 Propofol IV 30 mcg/kg/min TITR BRUNILDA 13.14 mls/hr Administration Protocol 5 MCG/KG/MIN Norepinephrine 4 mg in 250 mls @ 7.5 mls/hr 02/05/20 16:00 Levophed Drip 4 Mg/Ns 250 Ml IV TITR BRUNILDA Protocol 2 MCG/MIN Insulin Human Isoph/Insulin Regular 20 unit 02/04/20 08:00 02/05/20 12:08 Humulin 70/30 SUB-Q 20 unit BIDDIAB BRUNILDA Administration Insulin Human Lispro 0 unit 02/05/20 12:00 02/05/20 13:17 Humalog SUB-Q Not Given Q6HR [facility] Protocol Midazolam HCl 2 mg 02/05/20 09:45 Versed IV Q10MIN PRN Sedation Multi-Ingred Cream/Lotion/Oil/Oint 1 applic 02/05/20 05:33 Artificial Tears Ophth Oint OU Q4HR PRN Dry Eye(s) Pseudoephedrine/Acetam/Chlorphenir 10 ml 02/02/20 11:39 02/04/20 04:27 Robitussin Ac PO 10 ml Q4H PRN Administration Cough Tramadol HCl 50 mg 01/24/20 21:09 02/04/20 13:18 Ultram PO 50 mg Q6H PRN Administration Pain, Moderate (4-6) Nutrition/Malnutrition Assess - Dietary Evaluation Nutrition/Malnutrition Findings: Nutrition Notes Start: 01/30/20 12:13 Freq: Status: Active Protocol: Document 02/05/20 13:10 AB (Rec: 02/05/20 13:23 AB [id number]) Co-Sign 02/05/20 13:10 LM Nutrition Notes Need for Assessment generated from: MD Order Initial or Follow up Assessment Current Diagnosis Sepsis Other Pertinent Diagnosis acute respiratory failure, pneumonia, hyponatremia Current Diet Consistent Carb Labs/Tests Na 129 Cr 0.4 Pertinent Medications Heparin Humulin Fentanyl Height 5 ft 2 in Weight 73 kg [place] Body Weight (kg) 53.63 BMI 29.4 Weight Status Overweight Subjective/Other Information MD consult to evaluate nutritional intake. Pt intubated this morning. Waiting for write/manage TF order. Percent of energy/protein needs met: 0%/0% Burn Absent Trauma Absent GI Symptoms None Food Allergy No Current % PO Negligible Minimum of two criteria No physical signs of malnutrition #1 Nutrition Diagnosis Inadequate oral intake Etiology Mechanical ventilation As Evidenced by Signs and Symptoms Pt unable to consume PO Is patient on ventilator? Yes Is Patient Ambulatory and/or Out of Bed No REE-([facility]-confined to bed) [phone] Calculation Used for Recommendations [facility] Additional Notes Protein: 89-148 g (1.2-2 g/kg) Fluid: 1 ml/kcal Nutrition Intervention Change Diet Order: TF start when medically advised Nutrition Support: Vital AF at 60 ml/hr. Flush 100 ml q4h. For hyponatremia, flush 50 ml q6h Kcal 1,728 Protein (gm) 108 Fluid (mL) 1,168 Goal #1 TF start/tolerance or extubation Anticipated Discharge Needs: Unable to determine at this time Follow-Up By: 02/07/20 Additional Comments F/U for TF write/manage order or extubation
[2020-02-05] MEDS ORDERED: NORepinephrine/NS 4 MG-250 ML 4 MG/250 ML BAG IV SCH (16:00)
[2020-02-06 00:53] VITALS: BP 98/46
[2020-02-06] MEDS ORDERED: EPINEPHrine 1 MG/10 ML SYRINGE ONE (01:00)
[2020-02-06] MEDS ORDERED: SODIUM BICARB 8.4% 50 MEQ/50 ML SYRINGE IV ONE (01:00)
--- NOTE | 2020-02-06 04:15 | Event Note ---
Date: 02/06/20 VALDO JUAN called on 54-year-old male who has been on admission for respiratory failure secondary to bilateral pneumonia and possible Covid 19. Resuscitative measures were commenced immediately according to ACLS protocol. All measures however proved futile. Upon exam: Pupils were fixed and dilated. No response to verbal commands or deep sternal rub Chest: No breath sounds Cardiovascular exam: No heart sounds and no peripheral pulses. Abdomen: Soft Extremities: 1+ bilateral lower extremity edema, cold and clammy. Central nervous system: No reflexes Patient pronounced on 02/06/2020 at 0050 a.m. Spouse notified immediately.
--- NOTE | 2020-02-06 11:28 | Death Summary ---
Summary - Providers Date of service: 02/06/20 Consults: 02/04/20 08:26 Consult to Physician [CONS] Urgent Comment: Consulting Provider: BG DAS Physician Instructions: Reason For Exam: Resp failure 02/04/20 08:27 Consult to Physician [CONS] Routine Comment: Consulting Provider: MANJEET RIVERA Physician Instructions: Reason For Exam: Covid pneumonia on High flow 02/05/20 05:33 Consult to Dietitian/Nutrition [CONS] Routine Physician Instructions: Reason For Exam: Reason for Consult: Evaluate nutritional intake 02/05/20 05:37 PICC Line Insertion [Consult to PICC Line RN] [CONS] Urgent Reason For Exam: pressor mAYBE STARTED Type Line:: PICC 02/05/20 15:59 Consult to Dietitian/Nutrition [CONS] Routine Physician Instructions: Reason For Exam: Reason for Consult: Write/Manage Tube Feeding Attending: ALDA STEVENS - summary Date of admission: 01/23/20 22:45 Date of : 02/06/20 Disposition: 54 years old male with no medical history, admitted on 01/23/2020, initially tested positive for COVID-19 on 01/23/2020, admitted on secondary to few days history of worsening cough, generalized malaise, shortness of breath, dyspnea on exertion, loss of smell and taste. Patient called EMS and found to have pulse oximetry of 62% on room air. Patient was admitted with diagnosis of acute hypoxemic respiratory failure, COVID-19 bilateral pneumonia, severe sepsis, insulin-dependent diabetes mellitus, hyponatremia and elevated D-dimer. Patient was initially placed on nonrebreather. Patient was seen by infectious disease and completed remdesivir and dexamethasone. Unfortunately patient's hospital course deteriorated with worsening respiratory status and began to require high flow nasal cannula. Patient continued to worsen and thus was intubated on 02/02/2020 with increasing FiO2 100%. The patient received further treatment with IV antibiotics for other complications including presumed MRSA pneumonia. ID check for MRSA PCR but empirically treated with vancomycin and cefepime. CTA was ordered for extremely elevated D-dimer however unable to be completed due to unstable respiratory status. Other treatments included anticoagulation per protocol and prone positioning as possible. SARS CoV-2 IgG is positive, patient is not a candidate for COVID convalescent plasma. Patient's overall clinical status remained guarded/poor. Unfortunately on 10/17 in the late evening, VALDO JUAN was called and resuscitative measures commenced immediately according to ACLS protocol. All efforts/measures proved to be futile. Please see code note for details. Patient pronounced at 02/06/2020 at 0050 a.m. summary time 35 minutes - Final diagnosis (1) Severe sepsis Note: Final diagnosis: (2) IDDM (insulin dependent diabetes mellitus) Note: Final diagnosis: (3) Hyponatremia Note: Final diagnosis: (4) Acute hypoxemic respiratory failure Note: Final diagnosis: (5) Bilateral pneumonia Note: Final diagnosis: (6) Pneumonia due to COVID-19 virus Note: Final diagnosis:
== END 2020-02-06 02:52 | DRG 871 ==
LOC: ED 13:26 → 3A 22:45 → CC1 02-05 02:36
PROVIDERS: ADMIT Internal Medicine; ATTEND Hospitalist
PROC: 5A12012 Performance of Cardiac Output, Single, Manual (ICD-10-PCS; principal; 2020-01-23)
PROC: 4A033R1 Measurement of Arterial Saturation, Peripheral, Percutaneous Approach (ICD-10-PCS; 2020-02-06)
PROC: 5A1935Z Respiratory Ventilation, Less than 24 Consecutive Hours (ICD-10-PCS; 2020-02-06)
PROC: 0BH17EZ Insertion of Endotracheal Airway into Trachea, Via Natural or Artificial Opening (ICD-10-PCS; 2020-02-06)
DX: A41.89 Other specified sepsis (principal); U07.1 COVID-19; J18.9 Pneumonia, unspecified organism; J96.01 Acute respiratory failure with hypoxia; E87.1 Hypo-osmolality and hyponatremia; R65.20 Severe sepsis without septic shock; R07.89 Other chest pain
CPT/HCPCS: 36415; 36600; 71045; 80048; 80053; 80076; 81001; 82140; 82728; 82803; 82805; 82947; 82962; 83520; 83615; 84145; 85007; 85025; 85379; 85610; 85730; 86140; 87040; 87070; 87086; 87205; 92950; 93005; 93970; 94002; 94003; 94660; 94760; G0378; J0171; J0330; J0456; J0692; J0696; J1100; J1170; J1644; J1650; J1815; J2250; J2704; J2920; J2930; J3010; J3370; J7030; J7040; J7050; J8540; U0003